=== PATIENT | female | born 1970 | race Two or more races ===

== ENCOUNTER 2025-08-16 20:49 | Inpatient (IN) | payer OTHER, MEDICAID ==
[~2025-08-16] VITALS: Ht 170.2 cm; Wt 95.5 kg
[2025-08-16 20:55] VITALS: PULSE 106; RESP 18; O2SAT 98
[2025-08-16] MEDS ORDERED: ACETAMINOPHEN 325 MG TAB PO ONE (21:15)
--- NOTE | 2025-08-16 21:17 | ED.PDOC ---
SOB-HPI HPI Comments 54-year-old was brought in by ambulance to the ER with a chief complaint of shortness of breath for the past 5 hours, along with chills. Patient reports that she felt short of breath while she was doing laundry, reports chills but denies fever. Also reports pressure-type sensation on her chest, nonradiating, denies palpitations. Denies any sick contacts or traveling. Patient underwent hemodialysis on Saturday. Per EMS, patient was 88% on room air, blood pressure was 180 systolic, and she required oxygen supplementation. Patient denies any cough or phlegm. On arrival to the ER, temperature was 102, patient is tachycardic, normotensive, 96 on room air. She has been compliant to Eliquis for the past 3 months. Past medical history: type 2 diabetic on insulin, ESRD on hemodialysis with [facility] Saturday//Saturday, history of PE 1 year on Eliquis-likely provoked after surgery, hypertension Home medications: nifedipine, metoprolol, Eliquis, insulin Patient seen and examined. No pedal edema or crackles heard. Chest X-ray no acute pathology. Chief Complaint: Shortness of Breath Time Seen by MD: 21:01 Reviewed notes: Nurses Notes Information Source: Patient Mode of Arrival: EMS Constitutional: reports: chills EENTM: denies: blurred vision, double vision, ear bleeding, ear discharge, ear drainage, ear pain, ear ringing, eye pain, eye redness, hearing loss, mouth pain, mouth swelling, nasal discharge, nose bleeding, nose congestion, nose pain, photophobia, tearing, throat pain, throat swelling, voice changes, others Respiratory: reports: cough, SOB at rest, SOB with excertion Cardiovascular: reports: chest pain Gastrointestinal: denies: abdomen distended, abdominal pain, blood streaked bowels, constipated, diarrhea, dysphagia, difficulty swallowing, hematemesis, melena, nausea, poor appetite, poor fluid intake, rectal bleeding, rectal pain, vomiting, others Genitourinary: denies: abnormal vagina bleeding, burning, dyspareunia, dysuria, flank pain, frequency, hematuria, incontinence, pain, , vagina discharge, urgency, others Neurological: denies: dizziness, fainting, headache, left sided numbness, left sided weakness, numbness, paresthesia, pre-existing deficit, right sided numbness, right sided weakness, seizure, speech problems, tingling, tremors, weakness, others Musculoskeletal: reports: others (Lower extremity pain) Integumetry: denies: bruises, change in color, change in hair/nails, dryness, laceration, lesions, lumps, rash, wounds, others Allergic/Immunocompromised: denies: Difficulty Healing, Frequent Infections, Hives, Itching, others Hematologic/Lymphatic: denies: anemia, blood clots, easy bleeding, easy bruising, swollen glands, others Endocrine: denies: excessive hunger, excessive sweating, excessive thirst, excessive urination, flushing, intolerance to cold, intolerance to heat, unexplained weight gain, unexplained weight loss, others Psychiatric: denies: anxiety, bipolar disorder, depression, hopeless, panic disorder, schizophrenia, sleepless, suicidal, others Physical Exam General Appearance: Mild Distress HEENT: Other (Dry mucous membrane) Neck: NOT DONE Respiratory: Decreased Breath Sounds, No Accessory Muscle Use Cardiovascular: No Edema, No Murmur, Tachycardia Breast Exam: Deferred Gastrointestinal: Non Tender, Normal Bowel Sounds Genitalia: Deferred Pelvic: Deferred Rectal: Deferred Extremities: Calf tenderness Neurologic: NOT DONE Cerebellar Function: NOT DONE Reflexes: NOT DONE Skin: Dry Lymphatic: NOT DONE EKG EKG : Comments Nonspecific T-wave inversions Otherwise sinus tachycardia Prior Q-waves age indeterminate Was a procedure done? Was a procedure done?: No Differential Dx Differential Diagnosis: CHF, Pneumonia X-Ray, Labs, Meds, VS Vital Signs Date Time Temp Pulse Resp B/P (MAP) Pulse Ox O2 Delivery O2 Flow Rate FiO2 08/17/25 01:00 99.4 78 14 101/57 (72) 98 99.4 08/17/25 00:28 82 08/17/25 00:00 81 08/16/25 23:01 99.6 98 18 144/62 (89) 98 99.6 08/16/25 21:50 102.3 08/16/25 21:32 18 98 Nasal Cannula* 2 28 08/16/25 21:32 98 Nasal Cannula* 2 28 08/16/25 21:24 101 08/16/25 20:58 96 Nasal Cannula* 2 28 08/16/25 20:56 102.9 109 18 189/81 96 102.9 08/16/25 20:55 102.3 106 18 139/61 (87) 98 102.3 08/16/25 20:55 106 18 98 Nasal Cannula* 2 28 Lab Test 08/17/25 00:58 08/16/25 23:18 08/16/25 22:28 08/16/25 22:06 Range/Units Reticulocyte Count (auto) 1.04 0.5-1.5 % Haptoglobin Pending Prothrombin Time 11.4 9.3-11.8 sec Prothrombin Time INR 1.08 0.9-1.15 Activated Partial Thromboplast Time 31.2 24.5-34.5 SEC Hemoglobin A1c 9.3 H <5.7 % A1C Phosphorus Level Pending Magnesium Level Pending Troponin I High Sensitivity 665 *H 344 *H 131 *H </=34 ng/L Triglycerides Level Pending Cholesterol Level Pending LDL Cholesterol Pending HDL Cholesterol Pending Vitamin B12 Level Pending Vitamin D 25-Hydroxy 15.0 L 30.0-100 ng/mL Thyroid Stimulating Hormone (TSH) 1.40 0.55-4.78 uIU/mL Lactic Acid Level 1.7 0.4-2.0 mmol/L White Blood Count 22.6 H 4.4-10.8 10^3/uL Red Blood Count 2.37 L 4.0-5.20 10^6/uL Hemoglobin 6.8 *L 12.2-16.2 g/dL Hematocrit 20.8 L 36.0-46.0 % Mean Corpuscular Volume 87.8 80.0-100.0 fL Mean Corpuscular Hemoglobin 28.6 28.0-32.0 pg Mean Corpuscular Hemoglobin Concent 32.6 32.0-36.0 g/dL Red Cell Distribution Width 18.0 H 11.8-14.3 % Platelet Count 344 140-450 10^3/uL Mean Platelet Volume 8.7 6.9-10.8 fL Neutrophils (%) (Auto) 83.0 H 37.0-80.0 % Lymphocytes (%) (Auto) 8.0 L 10.0-50.0 % Monocytes (%) (Auto) 7.6 0.0-12.0 % Eosinophils (%) (Auto) 0.8 0.0-7.0 % Basophils (%) (Auto) 0.6 0.0-2.0 % Neutrophils # (Auto) 18.7 H 1.6-8.6 10 ^3/uL Lymphocytes # (Auto) 1.8 0.4-5.4 10 ^3/uL Monocytes # (Auto) 1.7 H 0-1.3 10 ^3/uL Eosinophils # (Auto) 0.2 0-0.8 10 ^3/uL Basophils # (Auto) 0.1 0-0.2 10 ^3/uL Nucleated Red Blood Cells 0.0 % Sodium Level 138 136-145 mmol/L Potassium Level 3.1 L 3.5-5.1 mmol/L Chloride Level 97 L 98-107 mmol/L Carbon Dioxide Level 25 20-31 mmol/L Anion Gap 16 H 5-15 Blood Urea Nitrogen 64 H 9-23 mg/dL Creatinine 5.28 H 0.550-1.02 mg/dL Glomerular Filtration Rate Calc 9 >90 mL/min BUN/Creatinine Ratio 12.1 10.0-20.0 Serum Glucose 212 H 74-106 mg/dL Calcium Level 9.1 8.7-10.4 mg/dL Iron Level 25 L 50-170 ug/dL Total Iron Binding Capacity 236 L 250-425 ug/dL Percent Iron Saturation 10.6 L 15-50 % Ferritin 611.0 H 10-291 ng/mL Total Bilirubin 0.2 0.2-1.0 mg/dL Aspartate Amino Transferase (AST) 17 13-40 U/L Alanine Aminotransferase (ALT) 13 7-40 U/L Alkaline Phosphatase 141 H 46-116 U/L Lactate Dehydrogenase 243 120-246 U/L B-Type Natriuretic Peptide 217.82 0-100 pg/mL Total Protein 8.3 H 5.7-8.2 g/dL Albumin 4.2 3.2-4.8 g/dL Test 08/16/25 22:00 Range/Units Influenza Type A Antigen Positive Negative Influenza Type B Antigen Positive Negative SARS-CoV-2 Antigen (Rapid) Negative NEGATIVE Current Medications Medications (Trade) Dose Ordered Sig/Julio C Route Start Time Stop Time Status Last Admin Levalbuterol HCl (Xopenex Medneb) 0.625 mg Q6HR NEB 08/16/25 21:15 08/17/25 01:46 Acetaminophen (Tylenol Tablet Or Capsule) 1,000 mg ONCE ONCE PO 08/16/25 21:30 08/16/25 21:31 DC 08/16/25 21:50 Ceftriaxone Sodium 50 ml @ 100 mls/hr ONCE ONCE IV 08/16/25 22:00 08/16/25 22:29 DC 08/16/25 22:28 Azithromycin 250 ml @ 125 mls/hr ONCE ONCE IV 08/16/25 22:00 08/16/25 23:59 DC 08/16/25 22:00 Potassium Chloride 100 ml @ 50 mls/hr ONCE ONCE IV 08/16/25 23:30 08/17/25 01:29 DC 08/17/25 01:12 Oseltamivir Phosphate (Tamiflu 30MG Capsule) 30 mg ONCE ONCE PO 08/16/25 23:30 08/16/25 23:31 DC 08/17/25 01:12 Pantoprazole Sodium (Protonix) 40 mg ONCE ONCE IV 08/17/25 00:45 08/17/25 00:46 DC 08/17/25 01:12 X-Ray, Labs, Meds, VS Comment Lower extremity Doppler No right or left femoropopliteal venous thrombosis. Images Reviewed?: Images reviewed and evaluated by me Time of 1ST Reevaluation: 00:00 Reevaluation 1ST: Improved Patient Education/Counseling: Diagnosis, Treatment Family Education/Counseling: No Family Present SEPSIS Sepsis Screen Date sepsis recognized/suspect: Aug 16, 2025 Time Sepsis recognized/suspect: 2053 Recent Procedure: No On Antibiotic Therapy: No Respiratory Rate >20: No Heart Rate >90: Yes Temp<36 C (96.8 F) or >38.3 C: Yes SBP <90 or MAP <65 mmHG: No New Acute Mental Status Change: No Is the patient on CPAP, BIPAP,: No Physician Orders Urinalysis (08/16/25 21:12) Chest Xray 1 View (08/16/25 21:12) Test, Urine (08/16/25 21:12) Blood Culture (08/16/25 21:12) Bilat Lower Dvt (08/16/25 21:12) Mrsa Screen (08/16/25 21:12) Levalbuterol Hcl (Xopenex Medneb) (08/16/25 21:15) Electrocardigram (08/16/25 21:33) Vital Signs Date Time Temp Pulse Resp B/P (MAP) Pulse Ox O2 Delivery O2 Flow Rate FiO2 08/17/25 01:00 99.4 78 14 101/57 (72) 98 99.4 08/17/25 00:28 82 08/17/25 00:00 81 08/16/25 23:01 99.6 98 18 144/62 (89) 98 99.6 08/16/25 21:50 102.3 08/16/25 21:32 18 98 Nasal Cannula* 2 28 08/16/25 21:32 98 Nasal Cannula* 2 28 08/16/25 21:24 101 08/16/25 20:58 96 Nasal Cannula* 2 28 08/16/25 20:56 102.9 109 18 189/81 96 102.9 08/16/25 20:55 102.3 106 18 139/61 (87) 98 102.3 08/16/25 20:55 106 18 98 Nasal Cannula* 2 28 Laboratory Tests Test 08/16/25 22:06 08/16/25 22:28 White Blood Count 22.6 10^3/uL (4.4-10.8) H Lactic Acid Level 1.7 mmol/L (0.4-2.0) Medications Medications Dose Ordered Sig/Julio C Route Start Time Stop Time Status Last Admin Dose Admin Acetaminophen 1,000 mg ONCE ONCE PO 08/16/25 21:30 08/16/25 21:31 DC 08/16/25 21:50 Azithromycin 250 ml @ 125 mls/hr ONCE ONCE IV 08/16/25 22:00 08/16/25 23:59 DC 08/16/25 22:00 Ceftriaxone Sodium 50 ml @ 100 mls/hr ONCE ONCE IV 08/16/25 22:00 08/16/25 22:29 DC 08/16/25 22:28 Levalbuterol HCl 0.625 mg Q6HR NEB 08/16/25 21:15 08/17/25 01:46 Levalbuterol HCl 1.25 mg STK-MED ONCE .ROUTE 08/16/25 21:27 08/16/25 21:23 DC 08/16/25 21:31 Oseltamivir Phosphate 30 mg ONCE ONCE PO 08/16/25 23:30 08/16/25 23:31 DC 08/17/25 01:12 Pantoprazole Sodium 40 mg ONCE ONCE IV 08/17/25 00:45 08/17/25 00:46 DC 08/17/25 01:12 Potassium Chloride 100 ml @ 50 mls/hr ONCE ONCE IV 08/16/25 23:30 08/17/25 01:29 DC 08/17/25 01:12 Departure 1 Departure Time of Disposition: 00:35 Impression: Primary Impression: Acute hypoxic respiratory failure Additional Impressions: Influenza B Influenza A Acute blood loss anemia Disposition: ADMITTED INPATIENT Condition: Guarded Comments Patient will be admitted to this facility for further workup of sepsis, acute hypoxic respiratory failure, probable underlying pneumonia, acute blood loss anemia Spoke with Dr. [id number] Critical Care Note Critical Care Time?: No Stability Stability form required: No Heart Score Heart Score: Heart Score Response (Comments) Value History Moderate Suspicious 1 EKG Repolarization Disturb 1 Age 45-64 1 Risk Factors >3 or Hx ASHD 2 Troponin >3 x's Normal limit 2 Total 7 CANDACE NORWOOD RESIDENT Aug 16, 2025 21:16
[2025-08-16] MEDS: LEVALBUTEROL HCL 1.25 MG/3 ML NEB NEB SCH (21:29)
[2025-08-16] MEDS: LEVALBUTEROL HCL 1.25 MG/3 ML NEB ONE (21:31)
--- NOTE | 2025-08-16 21:42 | DVH ---
CHEST RADIOGRAPH Indication: sob Technique: Single frontal view of the chest was obtained Comparison: None FINDINGS: Lines and Tubes: None Lungs: No focal consolidation. Pleura: No effusion. No pneumothorax. Cardiomediastinal contours: Unremarkable Bones: No acute osseous abnormality. IMPRESSION: 1. No acute cardiopulmonary disease.
[2025-08-16] MEDS: ACETAMINOPHEN 500 MG TAB or CAP PO ONE (21:50)
[2025-08-16] MEDS: AZITHROMYCIN 500MG/ 250ML 250 ML IV ONE (22:00)
[2025-08-16 22:30] LABS: Nucleated Red Blood Cells % 0.0 %
[2025-08-16 22:32] LABS: Hematocrit 20.8 % (36.0-46.0); Mean Corpuscular Hemoglobin 28.6 pg (28.0-32.0); Mean Corpuscular Volume 87.8 fL (80.0-100.0)
[2025-08-16 22:45] LABS: Hemoglobin 6.8 g/dL (12.2-16.2)
--- NOTE | 2025-08-16 22:45 | DVH ---
Bilateral lower extremity venous duplex Clinical History: sob, tenderness Comparison: None Technique: Duplex Doppler evaluation of the deep venous systems of both lower extremities from the common femora l veins to the popliteal veins including color Doppler and spectral/pulsed waveform analysis was perf ormed. Findings: RIGHT SIDE: The common femoral vein demonstrates appropriate compressibility and waveform variability. There is compressibility/patency of the great saphenous vein at the proximal thigh. The femoral vein demonstrates appropriate compressibility and waveform variability. The deep femoral vein demonstrates appropriate compressibility and waveform variability. The popliteal vein demonstrates appropriate compressibility and waveform variability. There is normal compressibility at the tibioperoneal trunk. LEFT SIDE: The common femoral vein demonstrates appropriate compressibility and waveform variability. There is compressibility/patency of the great saphenous vein at the proximal thigh. The femoral vein demonstrates appropriate compressibility and waveform variability. The deep femoral vein demonstrates appropriate compressibility and waveform variability. The popliteal vein demonstrates appropriate compressibility and waveform variability. There is normal compressibility at the tibioperoneal trunk. Impression: No right or left femoropopliteal venous thrombosis.
[2025-08-16 22:48] LABS: COVID19 ANTIGEN SOFIA FIA NEGATIVE (NEGATIVE)
[2025-08-16 22:48] LABS: Alanine Aminotransferase 13 U/L (7-40); Albumin 4.2 g/dL (3.2-4.8); Anion Gap 16 (5-15); BUN/Creatinine Ratio 12.1 (10.0-20.0); Calcium 9.1 mg/dL (8.7-10.4); Carbon Dioxide 25 mmol/L (20-31); Sodium 138 mmol/L (136-145)
[2025-08-16 22:49] LABS: Alkaline Phosphatase 141 U/L (46-116); Bilirubin, Total 0.2 mg/dL (0.2-1.0); Blood Urea Nitrogen 64 mg/dL (9-23); Chloride 97 mmol/L (98-107); Glucose 212 mg/dL (74-106); Potassium 3.1 mmol/L (3.5-5.1); Total Protein 8.3 g/dL (5.7-8.2)
[2025-08-16 23:23] LABS: Iron 25.0 ug/dL (50-170)
[2025-08-16 23:24] LABS: Total Iron Binding Capacity 236.0 ug/dL (250-425)
[2025-08-17] VITALS (16 sets, daily range): BP systolic 108–167; BP diastolic 50–84; PULSE 74–106; RESP 12–19; TEMP 98.5–98.9; O2SAT 95–100
[2025-08-17] MEDS: PANTOPRAZOLE 40 MG/10 ML VIAL INJ IV ONE (01:12)
[2025-08-17] MEDS: OSELTAMIVIR 30 MG CAP PO ONE ×2 (01:12→13:37)
[2025-08-17] MEDS: POTASSIUM CHL 20MEQ/100ML 100 ML IV ONE (01:12)
[2025-08-17] MEDS ORDERED: MORPHINE SULFATE INJ 2 MG/ml SYRG IV PRN (01:15)
--- NOTE | 2025-08-17 01:15 | DVHHPRES ---
History of Present Illness Resident Creating Document: JODI EDWARDS History of Present Illness Christina Zarate is a 54-year-old female patient who presents to ED with chief complaint of fatigue, generalized weakness, dyspnea and chest pain which is described as tightness and in variable functional class, which started on 08/16/2025 at noon, with no relieving factors, no radiation. Patient has end- stage renal disease, currently completing hemodialysis sessions on Saturday//Saturdays through AV fistula which presents a blood clot is she has been on apixaban for the past three months. Denies any other associated symptoms like fever, chills, nausea, vomiting, melena, hematemesis, sick contacts and recent travel. Patient never completed colonoscopy. 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 Surgical history: Av fistula, x2 Family history: Noncontributory Social history: Lives in [place] with family (next of kin is daughter). Denies current tobacco, alcohol and other drug abuse Allergies: Vancomycin, amoxicillin, NSAIDs and lisinopril Home medication: Metoprolol, nifedipine, atorvastatin, apixaban. Patient seen and examined at bedside. Currently has no new complaints. She is somnolent. Patient admitted for further workup. Past Medical History Per HPI Past Surgical History Per HPI Family History Per HPI Past Social History Per HPI Review of Systems Review of Systems Per HPI Allergies: Coded Allergies: Lisinopril (Verified Allergy, Unknown, 08/16/25) NSAIDs (Verified Allergy, Unknown, 08/16/25) Vancomycin (Verified Allergy, Unknown, 08/16/25) Uncoded Allergies: ANOXICILLIN (Allergy, Unknown, 08/16/25) Medications Current Medications Medications Dose Ordered Sig/Julio C Route Start Time Stop Time Status Last Admin Dose Admin Levalbuterol HCl 0.625 mg Q6HR NEB 08/16/25 21:15 08/16/25 21:29 0.625 MG Exam Vital Signs Vital Signs Date Time Temp Pulse Resp B/P (MAP) Pulse Ox O2 Delivery O2 Flow Rate FiO2 08/17/25 00:28 82 08/16/25 23:01 99.6 18 144/62 (89) 98 99.6 08/16/25 21:32 Nasal Cannula* 2 28 Exam Patient lying in bed, in no acute distress General: Lucid, somnolent, febrile, mucosae are moist, pale conjunctivae Cardiovascular: Normal S1 and S2. No murmurs, gallops or rubs Respiratory: Normal ventilation mechanics. Bilateral crackles mainly on bases, rest of lung auscultation is clear. Abdomen: Soft, nontender, no organomegaly, normal bowel sounds MSK/skin: Mobilizes 4 limbs. Skin is dry and warm. AV fistula on left arm which thrills. Neurological: Oriented in 3 spheres. No motor no sensitive deficits. Pupils are isocoric and reactive Labs/Xrays Labs Test 08/17/25 00:58 08/16/25 22:28 08/16/25 22:06 08/16/25 22:00 Range/Units Lactic Acid Level 1.7 0.4-2.0 mmol/L White Blood Count 22.6 H 4.4-10.8 10^3/uL Red Blood Count 2.37 L 4.0-5.20 10^6/uL Hemoglobin 6.8 *L 12.2-16.2 g/dL Hematocrit 20.8 L 36.0-46.0 % Mean Corpuscular Volume 87.8 80.0-100.0 fL Mean Corpuscular Hemoglobin 28.6 28.0-32.0 pg Mean Corpuscular Hemoglobin Concent 32.6 32.0-36.0 g/dL Red Cell Distribution Width 18.0 H 11.8-14.3 % Platelet Count 344 140-450 10^3/uL Mean Platelet Volume 8.7 6.9-10.8 fL Neutrophils (%) (Auto) 83.0 H 37.0-80.0 % Lymphocytes (%) (Auto) 8.0 L 10.0-50.0 % Monocytes (%) (Auto) 7.6 0.0-12.0 % Eosinophils (%) (Auto) 0.8 0.0-7.0 % Basophils (%) (Auto) 0.6 0.0-2.0 % Neutrophils # (Auto) 18.7 H 1.6-8.6 10 ^3/uL Lymphocytes # (Auto) 1.8 0.4-5.4 10 ^3/uL Monocytes # (Auto) 1.7 H 0-1.3 10 ^3/uL Eosinophils # (Auto) 0.2 0-0.8 10 ^3/uL Basophils # (Auto) 0.1 0-0.2 10 ^3/uL Nucleated Red Blood Cells 0.0 % Sodium Level 138 136-145 mmol/L Potassium Level 3.1 L 3.5-5.1 mmol/L Chloride Level 97 L 98-107 mmol/L Carbon Dioxide Level 25 20-31 mmol/L Anion Gap 16 H 5-15 Blood Urea Nitrogen 64 H 9-23 mg/dL Creatinine 5.28 H 0.550-1.02 mg/dL Glomerular Filtration Rate Calc 9 >90 mL/min BUN/Creatinine Ratio 12.1 10.0-20.0 Serum Glucose 212 H 74-106 mg/dL Calcium Level 9.1 8.7-10.4 mg/dL Iron Level 25 L 50-170 ug/dL Total Iron Binding Capacity 236 L 250-425 ug/dL Percent Iron Saturation 10.6 L 15-50 % Ferritin 611.0 H 10-291 ng/mL Total Bilirubin 0.2 0.2-1.0 mg/dL Aspartate Amino Transferase (AST) 17 13-40 U/L Alanine Aminotransferase (ALT) 13 7-40 U/L Alkaline Phosphatase 141 H 46-116 U/L Lactate Dehydrogenase 243 120-246 U/L B-Type Natriuretic Peptide 217.82 0-100 pg/mL Total Protein 8.3 H 5.7-8.2 g/dL Albumin 4.2 3.2-4.8 g/dL Influenza Type A Antigen Positive Negative Influenza Type B Antigen Positive Negative SARS-CoV-2 Antigen (Rapid) Negative NEGATIVE SEPSIS Sepsis Screen Date sepsis recognized/suspect: Aug 16, 2025 Time Sepsis recognized/suspect: 2053 Recent Procedure: No On Antibiotic Therapy: No Respiratory Rate >20: No Heart Rate >90: Yes Temp<36 C (96.8 F) or >38.3 C: Yes SBP <90 or MAP <65 mmHG: No New Acute Mental Status Change: No Is the patient on CPAP, BIPAP,: No Physician Orders Urinalysis (08/16/25 21:12) Chest Xray 1 View (08/16/25 21:12) Troponin-I Hs (08/17/25 00:12) Test, Urine (08/16/25 21:12) Blood Culture (08/16/25 21:12) Bilat Lower Dvt (08/16/25 21:12) Mrsa Screen (08/16/25 21:12) Levalbuterol Hcl (Xopenex Medneb) (08/16/25 21:15) Electrocardigram (08/16/25 21:33) Type And Screen (08/16/25 22:50) Reticulocyte Count (08/16/25 22:50) Potassium Chl 20meq/100ml (08/16/25 23:30) Admit (08/17/25 01:03) Code Status (08/17/25 01:03) Acetaminophen Tablet (Tylenol Tablet) (08/17/25:15) Ondansetron Hcl (Zofran) (08/17/25 01:15) Npo (Nothing By Mouth) Diet (08/17/25 Breakfast) Echo 2d Mode Cardiac Dop (08/17/25 01:03) Morphine Sulfate Injection (08/17/25:15) Oxygen By Nasal Cannula (08/17/25 01:03) Stat Ekg For Chest Pain (08/17/25 01:03) Notify Md Of Changes From Base (08/17/25 01:03) Advanced Manager For 24 Hours (08/17/25 01:03) Emergency Dysrhythmia Protocol (08/17/25 01:03) Rhythm Strips Once Every Shift (08/17/25 01:03) Abg W/ Co-Ox (08/17/25 01:03) Vitamin D, 25-Hydroxy (08/17/25 01:03) Vitamin B12 (08/17/25 01:03) Thyroid Stimulating Hormone (08/17/25 01:03) PTPTT (08/17/25 01:03) Phosphorus (08/17/25 01:03) Magnesium (08/17/25 01:03) Lipid Panel (08/17/25 01:03) Hemoglobin A1c (08/17/25 01:03) Drug Screen (08/17/25 01:03) *Dr. Bernie Cho -[facility] (08/17/25 01:03) Ipratropium Medneb (Atrovent Medneb) (08/17/25 06:00) Ceftriaxone 1gm/50ml (Rocephin) (08/17/25 01:15) Azithromycin 500mg/ 250ml (Zithromax 50 (08/17/25 10:00) Stool Occult Blood (08/17/25 01:13) Haptoglobin (08/17/25 01:13) Vital Signs Date Time Temp Pulse Resp B/P (MAP) Pulse Ox O2 Delivery O2 Flow Rate FiO2 08/17/25 00:28 82 08/17/25 00:00 81 08/16/25 23:01 99.6 98 18 144/62 (89) 98 99.6 08/16/25 21:50 102.3 08/16/25 21:32 18 98 Nasal Cannula* 2 28 08/16/25 21:32 98 Nasal Cannula* 2 28 08/16/25 21:24 101 08/16/25 20:58 96 Nasal Cannula* 2 28 08/16/25 20:56 102.9 109 18 189/81 96 102.9 08/16/25 20:55 102.3 106 18 139/61 (87) 98 102.3 08/16/25 20:55 106 18 98 Nasal Cannula* 2 28 Laboratory Tests Test 08/16/25 22:06 08/16/25 22:28 White Blood Count 22.6 10^3/uL (4.4-10.8) H Lactic Acid Level 1.7 mmol/L (0.4-2.0) Medications Medications Dose Ordered Sig/Julio C Route Start Time Stop Time Status Last Admin Dose Admin Acetaminophen 1,000 mg ONCE ONCE PO 08/16/25 21:30 08/16/25 21:31 DC 08/16/25 21:50 1,000 MG Azithromycin 250 ml @ 125 mls/hr ONCE ONCE IV 08/16/25 22:00 08/16/25 23:59 DC 08/16/25 22:00 125 MLS/HR Ceftriaxone Sodium 50 ml @ 100 mls/hr ONCE ONCE IV 08/16/25 22:00 08/16/25 22:29 DC 08/16/25 22:28 100 MLS/HR Levalbuterol HCl 0.625 mg Q6HR NEB 08/16/25 21:15 08/16/25 21:29 0.625 MG Levalbuterol HCl 1.25 mg STK-MED ONCE .ROUTE 08/16/25 21:27 08/16/25 21:23 DC 08/16/25 21:31 1.25 MG Assessment/Plan Assessment/Plan Acute respiratory failure Sepsis probably secondary to pneumonia Influenza pneumonia Currently on oxygen therapy with nasal cannula at 2 L Ordered ABG Ordered deluca cultures (blood, sputum, urine). COVID swab negative, influenza a and B positive. Currently under empiric IV antibiotic (azithromycin and ceftriaxone) and on oseltamivir. Currently hold IV fluids since patient has end-stage renal disease. Indicated PRBCs. End-stage renal disease on hemodialysis session (Saturday//Saturday) Arterial venous fistula thrombosis Metabolic acidosis probably secondary to uremia Patient has been on apixaban for the past three months Discontinued blood thinners due to severe anemia. Consulted nephrology ([facility]) Severe normocytic anemia Rule out GI bleed Ordered anemia workup. Stool occult blood Currently on IV pantoprazole b.i.d. Discontinued anticoagulation (patient was on apixaban) Patient may benefit from erythropoietin. Ferritin levels are increased, iron decreased NSTEMI probable type 2 Probably secondary to active bleeding Ordered echocardiogram Hypertension Dyslipidemia Diabetes insulin requiring - Uncontrolled (hemoglobin A1c 9.2%) Patient currently on insulin sliding scale Hold anti-hypertensive medication due to probable active bleeding. Goals of care discussed with patient for over 18 minutes: Full code status Discussed plan with Dr. Johnson, patient and nurses: Patient will be admitted to telemetry, indicated PRBCs, on empiric IV antibiotic and adjusted antiviral medication. Hold IV fluids due to end-stage renal disease, ordered complementary workup for anemia and NSTEMI. Patient has poor prognosis Patient is unstable to be transferred to [place] Plan discussed with: Patient, Other (Nurses) My Orders Orders - JODI EDWARDS RESIDENT Procedure Category Date Status Time Admit ADMIT 08/17/25 Transmitted 01:03 Code Status CODE 08/17/25 Transmitted 01:03 Acetaminophen Tablet PHA 08/17/25 Logged (Tylenol Tablet) 01:15 Ondansetron Hcl PHA 08/17/25 Logged (Zofran) 01:15 Npo (Nothing By DIET 08/17/25 Transmitted Mouth) Diet Breakfast Echo 2d Mode Cardiac US 08/17/25 Logged DOP 01:03 Morphine Sulfate PHA 08/17/25 Logged Injection 01:15 Oxygen By Nasal RT 08/17/25 Transmitted Cannula 01:03 Stat Ekg For Chest DEBBIE 08/17/25 In Process Pain 01:03 Notify Of Changes DEBBIE 08/17/25 In Process From Base 01:03 Advanced Manager For [facility] 08/17/25 In Process 24 Hours 01:03 Emergency Dysrhythmia DEBBIE 08/17/25 In Process Protocol 01:03 Rhythm Strips Once DEBBIE 08/17/25 In Process Every Shift 01:03 Abg W/ Co-Ox RT 08/17/25 Logged 01:03 Vitamin D, 25-Hydroxy LAB 08/17/25 Logged 01:03 Vitamin B12 LAB 08/17/25 Logged 01:03 Thyroid Stimulating LAB 08/17/25 Logged Hormone 01:03 PTPTT LAB 08/17/25 Logged 01:03 Phosphorus LAB 08/17/25 Logged 01:03 Magnesium LAB 08/17/25 Logged 01:03 Lipid Panel LAB 08/17/25 Logged 01:03 Hemoglobin A1c LAB 08/17/25 Logged 01:03 Drug Screen LAB 08/17/25 Logged 01:03 *[facility] -[facility] CONS 08/17/25 Transmitted Inez 01:03 Ipratropium Medneb PHA 08/17/25 Logged (Atrovent Medneb) 06:00 Ceftriaxone 1gm/50ml PHA 08/17/25 Logged (Rocephin) 01:15 Azithromycin 500mg/ PHA 08/17/25 Logged 250ml (Zithromax 50 10:00 Stool Occult Blood LAB 08/17/25 Verified 01:13 Haptoglobin LAB 08/17/25 Verified 01:13 Date of Service: Aug 17, 2025 Billing Provider: VY ALVAREZ MD Common Visit Codes: [id number] INP/OBS CARE (HIGH) Secondary Visit Codes: [id number] CARE PLAN 30 MINUTES JODI EDWARDS Aug 17, 2025 01:15
[2025-08-17] MEDS: IPRATROPIUM BROM 0.5 MG/2.5ML INH SOL NEB SCH (01:46)
[2025-08-17 01:56] LABS: INR 1.08 (0.9-1.15); Partial Thromboplastin Time 31.2 SEC (24.5-34.5); Prothrombin Time 11.4 sec (9.3-11.8)
[2025-08-17 02:12] LABS: Base Excess -4.2 mmol/L (-2.0-3.0)
[2025-08-17] MEDS ORDERED: DEXTROSE (50%) 50ML SYRG IV PRN (02:15)
[2025-08-17 02:18] LABS: Magnesium 2.4 mg/dL (1.6-2.6); Triglycerides 179.0 mg/dL (< 150)
[2025-08-17 02:20] LABS: Cholesterol 176.0 mg/dL (< 200); HDL Cholesterol 49.0 mg/dL (40-59)
--- NOTE | 2025-08-17 05:37 | ECG ---
[facility] Test Date: 2025-08-16 Test Time: 21:24:56 Pat Name: NELIA MANCIA Department: [facility] ED Patient ID: [id number] Room: [address] [place] [address] Gender: F [employer]ement T[employer]: ED : 1970 Requested By: CANDACE NORWOOD Order Number: [id number] Reading MD: Florentin Moran Measurements Intervals [place] Rate: 101 P: 148 ID: [id number] QRS: -13 QRSD: 96 T: 121 QT: 358 QTc: 465 Interpretive Statements Sinus or ectopic atrial tachycardia Left atrial enlargement LVH with secondary repolarization abnormality Inferior infarct, old Anterior Q waves, possibly due to LVH Electronically Signed On 08-17-2025 15:24:58 PDT by Florentin Moran Please click the below link to view image of tracing.
[2025-08-17] MEDS: ACCU-CHEK COMFORT CURVE STRIP VI SCH (06:00)
[2025-08-17] MEDS: InsuLIN REG 1unit/0.01ml Soln (100units/ml) SC SCH (06:38)
[2025-08-17 08:07] LABS: Alanine Aminotransferase 12 U/L (7-40); Anion Gap 17 (5-15); Carbon Dioxide 21 mmol/L (20-31); Chloride 100 mmol/L (98-107); Sodium 138 mmol/L (136-145); Total Protein 8.1 g/dL (5.7-8.2)
[2025-08-17 08:08] LABS: Albumin 4.1 g/dL (3.2-4.8); Alkaline Phosphatase 122 U/L (46-116); BUN/Creatinine Ratio 11.4 (10.0-20.0); Bilirubin, Total 0.2 mg/dL (0.2-1.0); Blood Urea Nitrogen 66 mg/dL (9-23); Calcium 8.7 mg/dL (8.7-10.4); Glucose 173 mg/dL (74-106); Hematocrit 37.9 % (36.0-46.0); Hemoglobin 12.3 g/dL (12.2-16.2); Mean Corpuscular Hemoglobin 28.7 pg (28.0-32.0); Mean Corpuscular Volume 88.1 fL (80.0-100.0); Nucleated Red Blood Cells % 0.1 %; Potassium 3.1 mmol/L (3.5-5.1)
[2025-08-17 09:55] LABS: Urine Protein, UAD 2+ (Negative)
[2025-08-17] MEDS: AZITHROMYCIN 500MG/ 250ML 250 ML IV SCH (09:55)
[2025-08-17] MEDS: PANTOPRAZOLE 40 MG/10 ML VIAL INJ IV SCH (09:56)
[2025-08-17 09:57] LABS: Benzodiazephine Screen, Urine Neg (NEGATIVE)
[2025-08-17 10:03] LABS: Amphetamine Screen, Urine Neg (NEGATIVE); Barbiturate Scree,Urine Neg (NEGATIVE); Cannabinoid Screen, Urine Neg (NEGATIVE); Cocaine Screen, Urine Neg (NEGATIVE); Opiate Scree,Urine Neg (NEGATIVE); Phencyclidine Screen, Urine Neg (NEGATIVE)
--- NOTE | 2025-08-17 12:08 | DVHPN2 ---
Progress Note Date Seen: Aug 17, 2025 Medical Necessity Reason Pt with a Central, PICC or Fol: No Subjective Patient reports: No new complaints Review of Systems: HEENT:Normal, CVS:Normal, RESPIRATORY:Normal, GI:Normal, :Normal, MSK:Normal, NEURO:Normal Objective vital signs Vital Sign Date Time Temp Pulse Resp B/P (MAP) Pulse Ox O2 Delivery O2 Flow Rate FiO2 08/17/25 11:55 100 Nasal Cannula 2.0 08/17/25 11:55 79 18 08/17/25 11:55 28 08/17/25 10:00 134/72 (92) 08/17/25 05:28 98.5 98.5 Total Intake and Output 08/16/25 08/16/25 08/17/25 15:00 23:00 07:00 Intake Total 600 ml Balance 600 ml medications Current Medications Medications Dose Ordered Sig/Julio C Route Start Time Stop Time Status Last Admin Dose Admin Levalbuterol HCl 0.625 mg Q6HR NEB 08/16/25 21:15 08/17/25 11:53 0.625 MG Acetaminophen 325 mg Q4HP PRN PO 08/17/25 01:15 Ondansetron HCl 4 mg Q4HP PRN IV 08/17/25 01:15 Morphine Sulfate 2 mg Q4HPRN PRN IV 08/17/25 01:15 Ipratropium [place] 0.5 mg Q6HWA NEB 08/17/25 06:00 08/17/25 11:53 0.5 MG Azithromycin 250 ml @ 125 mls/hr DAILY IV 08/17/25 10:00 08/17/25 09:55 125 MLS/HR Pantoprazole Sodium 40 mg BID IV 08/17/25 10:00 08/17/25 09:56 40 MG Diagnostic Test (Pha) 1 strip Q6HR 08/17/25 06:00 08/17/25 06:00 1 STRIP Insulin Human Regular Q6HR SC 08/17/25 06:00 08/17/25 06:38 3 UNITS Dextrose 50 ml UD PRN IV 08/17/25 02:15 Oseltamivir Phosphate 30 mg DAILY PO 08/18/25 10:00 08/23/25 09:59 Examination: GENERAL:Normal, HEENT:Normal, NECK:Normal, LUNGS:Normal, CVS:Normal, ABDOMEN:Normal, MSK:Normal, SKIN:Normal, NEURO:Normal, :Normal laboratory and microbiology Laboratory Tests 08/17/25 07:42 Test 08/17/25 07:42 Range/Units Serum Glucose 173 H 74-106 mg/dL Problem List/Assessment/Plan Problem List/Assessment/Plan #1 sepsis likely due to influenza: tamiflu, cultures #2 esrd: on dialysis #3 severe anemia: recheck hemoglobin #4 obesity #5 dm: ssi #6 htn #8 h/o dvt: on eliquis #9 chronic systolic/diastolic heart failure #10 nstemi: cardio eval Plan discussed with: Patient My Orders My Orders Orders - BETSY MCPHERSON MD Procedure Category Date Status Time * Cardiology Consult CONS 08/17/25 Transmitted 10:49 Oseltamivir 30mg PHA 08/18/25 In Process Capsule (Tamiflu 30mg 10:00 Hemoglobin & LAB 08/17/25 Logged Hematocrit 11:32 Renal DIET 08/17/25 Transmitted Standard(2gna,3gk,Lopho) Lunch Basic Metabolic Panel LAB 08/18/25 Verified 06:00 Complete Blood Count LAB 08/18/25 Verified 06:00 Critical Care Time (mins): 41 (critical care time excluding procedures is 41 mins) Date of Service: Aug 17, 2025 Billing Provider: BETSY MCPHERSON MD Common Visit Codes: [id number] CARE 30-74 MIN CC Plasma Assessment Blood Product Administration S: [id number] BETSY MCPHERSON MD Aug 17, 2025 12:08
[2025-08-17 12:30] LABS: Hematocrit 37.0 % (36.0-46.0); Hemoglobin 12.0 g/dL (12.2-16.2)
[2025-08-17] MEDS: POTASSIUM CHL 20 Meq TABLET PO ONE (13:37)
--- NOTE | 2025-08-17 15:19 | DVHINCON2 ---
Date of service: Aug 17, [address] Gambino Reason for Consultation End-stage renal disease management History of Present Illness 54-year-old patient with significant history of end-stage renal disease on hemodialysis TTS, hypertension, diabetes type 2 who presents to the hospital with chills, hypoxia by EMS and found to have influenza positive. Patient endorses some shortness of breath and cough with some chills but no orthopnea PND or leg swelling. 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 Past Surgical History Surgical history: Av fistula, x2 Allergies: Coded Allergies: Lisinopril (Verified Allergy, Unknown, 08/16/25) NSAIDs (Verified Allergy, Unknown, 08/16/25) Vancomycin (Verified Allergy, Unknown, 08/16/25) Uncoded Allergies: ANOXICILLIN (Allergy, Unknown, 08/16/25) Current Medications Current Medications Medications (Trade) Dose Ordered Sig/Julio C Route PRN Reason Start Time Stop Time Status Last Admin Levalbuterol HCl (Xopenex Medneb) 0.625 mg Q6HR NEB 08/16/25 21:15 08/17/25 11:53 Acetaminophen (Tylenol Tablet) 325 mg Q4HP PRN PO MILD PAIN (1-3 PAIN SCALE) 08/17/25 01:15 Ondansetron HCl (Zofran) 4 mg Q4HP PRN IV NAUSEA / VOMITING 08/17/25 01:15 Morphine Sulfate 2 mg Q4HPRN PRN IV SEVERE PAIN (7-10 PAIN SCALE) 08/17/25 01:15 Ipratropium [place] (Atrovent Medneb) 0.5 mg Q6HWA NEB 08/17/25 06:00 08/17/25 11:53 Azithromycin 250 ml @ 125 mls/hr DAILY IV 08/17/25 10:08/17/25 09:55 Pantoprazole Sodium (Protonix) 40 mg BID IV 08/17/25 10:00 08/17/25 09:56 Diagnostic Test (Pha) (Accu-Chek Comfort Curve T) 1 strip Q6HR 08/17/25 06:00 08/17/25 12:00 Insulin Human Regular (InsuLIN R) Q6HR SC 08/17/25 06:00 08/17/25 13:33 Dextrose 50 ml UD PRN IV Blood Sugar LESS THAN 60 08/17/25 02:15 Oseltamivir Phosphate (Tamiflu 30MG Capsule) 30 mg BID PO 08/17/25 22:00 08/17/25 11:18 DC Oseltamivir Phosphate (Tamiflu 30MG Capsule) 30 mg DAILY PO 08/18/25 10:00 08/23/25 09:59 Social History Denies smoking alcohol or drug abuse Review of Systems HEENT: No evidence of JVD, no oral ulcers. Pulmonary: Diminished on auscultation bilaterally Cardiovascular S1-S2, no S3 or S4 Abdomen: Bowel sounds positive, soft no rebound tenderness Skin: No rash Neurological: Alert, oriented, no focal weakness H&P Exam Vital Signs/I&O Vital Sign Date Time Temp Pulse Resp B/P (MAP) Pulse Ox O2 Delivery O2 Flow Rate FiO2 08/17/25 12:06 96 18 99 08/17/25 12:00 97.7 148/69 (95) 97.7 08/17/25 12:00 Nasal Cannula* 2 28 Intake and Output 08/16/25 08/17/25 19:00 07:00 Intake Total 600 ml Balance 600 ml Blood Product 600 ml Physical Exam HEENT: No evidence of JVD, no oral ulcers. Pulmonary: Lungs are clear on auscultation bilaterally Cardiovascular S1-S2, no S3 or S4 Abdomen: Bowel sounds positive, soft no rebound tenderness Skin: No rash Neurological: Alert, oriented, no focal weakness Labs/Diagnostic Data Labs/Diagnostic Data Laboratory Tests Test 08/17/25 13:12 08/17/25 12:08 08/17/25 09:10 08/17/25 07:42 Range/Units POC Glucose 186 H 70-106 mg/dl Hemoglobin 12.0 L 12.3 # 12.2-16.2 g/dL Hematocrit 37.0 37.9 # 36.0-46.0 % Urine Color Light-yellow Yellow Urine Clarity Turbid H Clear Urine pH 6.0 5.0-9.0 Urine Specific [place] 1.014 1.001-1.035 Urine Protein 2+ H Negative Urine Ketones Negative Negative Urine Blood 1+ H Negative /uL Urine Nitrite Negative Negative Urine Bilirubin Negative Negative Urine Urobilinogen Normal Negative mg/dL Urine Leukocyte Esterase Negative Negative /uL Urine RBC 6 0 - 4 /hpf Urine Microscopic WBC 5 0-5 /HPF Urine Squamous Epithelial Cells Few <5 /hpf Urine Bacteria Few H None Seen /hpf Urine Glucose 4+ H Normal mg/dL Urine Test Negative Negative Urine Opiates Screen Neg NEGATIVE Urine Fentanyl Screen Neg NEGATIVE Urine Barbiturates Screen Neg NEGATIVE Urine Phencyclidine Screen Neg NEGATIVE Urine Amphetamines Screen Neg NEGATIVE Urine Benzodiazepines Screen Neg NEGATIVE Urine Cocaine Screen Neg NEGATIVE Urine Cannabinoids Screen Neg NEGATIVE White Blood Count 15.1 #H 4.4-10.8 10^3/uL Red Blood Count 4.30 4.0-5.20 10^6/uL Mean Corpuscular Volume 88.1 80.0-100.0 fL Mean Corpuscular Hemoglobin 28.7 28.0-32.0 pg Mean Corpuscular Hemoglobin Concent 32.6 32.0-36.0 g/dL Red Cell Distribution Width 17.7 H 11.8-14.3 % Platelet Count 214 140-450 10^3/uL Mean Platelet Volume 8.4 6.9-10.8 fL Neutrophils (%) (Auto) 69.4 37.0-80.0 % Lymphocytes (%) (Auto) 19.4 10.0-50.0 % Monocytes (%) (Auto) 10.0 0.0-12.0 % Eosinophils (%) (Auto) 0.7 0.0-7.0 % Basophils (%) (Auto) 0.5 0.0-2.0 % Neutrophils # (Auto) 10.5 H 1.6-8.6 10 ^3/uL Lymphocytes # (Auto) 2.9 0.4-5.4 10 ^3/uL Monocytes # (Auto) 1.5 H 0-1.3 10 ^3/uL Eosinophils # (Auto) 0.1 0-0.8 10 ^3/uL Basophils # (Auto) 0.1 0-0.2 10 ^3/uL Nucleated Red Blood Cells 0.1 % Sodium Level 138 136-145 mmol/L Potassium Level 3.1 L 3.5-5.1 mmol/L Chloride Level 100 98-107 mmol/L Carbon Dioxide Level 21 20-31 mmol/L Anion Gap 17 H 5-15 Blood Urea Nitrogen 66 H 9-23 mg/dL Creatinine 5.77 H 0.550-1.02 mg/dL Glomerular Filtration Rate Calc 8 >90 mL/min BUN/Creatinine Ratio 11.4 10.0-20.0 Serum Glucose 173 H 74-106 mg/dL Calcium Level 8.7 8.7-10.4 mg/dL Total Bilirubin 0.2 0.2-1.0 mg/dL Aspartate Amino Transferase (AST) 25 13-40 U/L Alanine Aminotransferase (ALT) 12 7-40 U/L Alkaline Phosphatase 122 H 46-116 U/L Troponin I High Sensitivity 1764 *H </=34 ng/L Total Protein 8.1 5.7-8.2 g/dL Albumin 4.1 3.2-4.8 g/dL Test 08/17/25 01:50 08/17/25 00:58 08/16/25 23:18 08/16/25 22:28 Range/Units Blood Gas Specimen Type Arterial Blood Gas Sample Site Left radial Blood Gas Patient Temperature 37.0 Arterial Blood Date Drawn [id number] Arterial Blood pH 7.366 7.350-7.450 Arterial Blood Partial Pressure CO2 36.9 32.0-45.0 mmHg Arterial Blood Partial Pressure O2 102.2 83.0-108.0 mmHg Arterial Blood HCO3 20.7 L 21.0-28.0 mmol/L Arterial Blood Oxygen Saturation 97.1 94.0-98.0 % Arterial Blood Base Excess -4.2 L -2.0-3.0 mmol/L Arterial Blood Oxyhemoglobin 95.9 94.0-98.0 % Arterial Blood Carboxyhemoglobin 0.7 0.5-1.5 % Arterial Blood Methemoglobin 0.5 0.0-1.5 % Rock Test Yes Blood Gas Total Hemoglobin 11.20 L 12.0-16.0 g/dL Blood Gas Liter Flow 2.00 Blood Gas Modality Nasal cannula FiO2 % 28.0 Reticulocyte Count (auto) 1.04 0.5-1.5 % Prothrombin Time 11.4 9.3-11.8 sec Prothrombin Time INR 1.08 0.9-1.15 Activated Partial Thromboplast Time 31.2 24.5-34.5 SEC Hemoglobin A1c 9.3 H <5.7 % A1C Phosphorus Level 5.1 2.4-5.1 mg/dL Magnesium Level 2.4 1.6-2.6 mg/dL Troponin I High Sensitivity 665 *H 344 *H </=34 ng/L Triglycerides Level 179 H < 150 mg/dL Cholesterol Level 176 < 200 mg/dL LDL Cholesterol 99 < 100 mg/dL HDL Cholesterol 49 40-59 mg/dL Vitamin B12 Level 383 211-911 pg/mL Vitamin D 25-Hydroxy 15.0 L 30.0-100 ng/mL Thyroid Stimulating Hormone (TSH) 1.40 0.55-4.78 uIU/mL Lactic Acid Level 1.7 0.4-2.0 mmol/L Test 08/16/25 22:06 08/16/25 22:00 Range/Units White Blood Count 22.6 H 4.4-10.8 10^3/uL Red Blood Count 2.37 L 4.0-5.20 10^6/uL Hemoglobin 6.8 *L 12.2-16.2 g/dL Hematocrit 20.8 L 36.0-46.0 % Mean Corpuscular Volume 87.8 80.0-100.0 fL Mean Corpuscular Hemoglobin 28.6 28.0-32.0 pg Mean Corpuscular Hemoglobin Concent 32.6 32.0-36.0 g/dL Red Cell Distribution Width 18.0 H 11.8-14.3 % Platelet Count 344 140-450 10^3/uL Mean Platelet Volume 8.7 6.9-10.8 fL Neutrophils (%) (Auto) 83.0 H 37.0-80.0 % Lymphocytes (%) (Auto) 8.0 L 10.0-50.0 % Monocytes (%) (Auto) 7.6 0.0-12.0 % Eosinophils (%) (Auto) 0.8 0.0-7.0 % Basophils (%) (Auto) 0.6 0.0-2.0 % Neutrophils # (Auto) 18.7 H 1.6-8.6 10 ^3/uL Lymphocytes # (Auto) 1.8 0.4-5.4 10 ^3/uL Monocytes # (Auto) 1.7 H 0-1.3 10 ^3/uL Eosinophils # (Auto) 0.2 0-0.8 10 ^3/uL Basophils # (Auto) 0.1 0-0.2 10 ^3/uL Nucleated Red Blood Cells 0.0 % Sodium Level 138 136-145 mmol/L Potassium Level 3.1 L 3.5-5.1 mmol/L Chloride Level 97 L 98-107 mmol/L Carbon Dioxide Level 25 20-31 mmol/L Anion Gap 16 H 5-15 Blood Urea Nitrogen 64 H 9-23 mg/dL Creatinine 5.28 H 0.550-1.02 mg/dL Glomerular Filtration Rate Calc 9 >90 mL/min BUN/Creatinine Ratio 12.1 10.0-20.0 Serum Glucose 212 H 74-106 mg/dL Calcium Level 9.1 8.7-10.4 mg/dL Iron Level 25 L 50-170 ug/dL Total Iron Binding Capacity 236 L 250-425 ug/dL Percent Iron Saturation 10.6 L 15-50 % Ferritin 611.0 H 10-291 ng/mL Total Bilirubin 0.2 0.2-1.0 mg/dL Aspartate Amino Transferase (AST) 17 13-40 U/L Alanine Aminotransferase (ALT) 13 7-40 U/L Alkaline Phosphatase 141 H 46-116 U/L Lactate Dehydrogenase 243 120-246 U/L Troponin I High Sensitivity 131 *H </=34 ng/L B-Type Natriuretic Peptide 217.82 0-100 pg/mL Total Protein 8.3 H 5.7-8.2 g/dL Albumin 4.2 3.2-4.8 g/dL Influenza Type A Antigen Positive Negative Influenza Type B Antigen Positive Negative SARS-CoV-2 Antigen (Rapid) Negative NEGATIVE Chest x-ray reviewed clear Assessment Assessment: End-stage renal disease on hemodialysis TTS Hypertension CHF Diabetes type 2 Influenza a and positive History of thromboembolism Acute hypoxic respiratory failure Plan: Dialysis today and TTS Continue Tamiflu Continue antibiotics Oxygen supplementation to keep pulses more 90 % He said for goal hemoglobin 10-11 g per dL Continue phosphate binder Thank you very much for allowing us to participate in the care of this patient please contact if you have any questions. Plan discussed with: Patient MARYANN VELARDE MD Aug 17, 2025 15:19
[2025-08-17] MEDS: ACETAMINOPHEN 325 MG TAB PO PRN (16:22)
[2025-08-17] MEDS: CALCIUM ACETATE 667 MG CAP PO SCH (18:15)
[2025-08-17] MEDS ORDERED: OSELTAMIVIR 30 MG CAP PO SCH (22:00)
--- NOTE | 2025-08-17 23:03 | DVHINCON2 ---
Date of service: Aug 17, 2025 Referring Physician Edward Reason for Consultation Elevated troponin History of Present Illness This is a 54-year-old female with a PMH of type 2 diabetic on insulin, ESRD on hemodialysis with [facility] Saturday//Saturday, history of PE 1 year on Eliquis-likely provoked after surgery, hypertension was brought in by ambulance to the ED with a complaint of shortness of breath for the past 5 hours, along with chills. Patient reports that she felt short of breath while she was doing laundry, reports chills but denies fever. Also reports pressure-type sensation on her chest, nonradiating, denies palpitations. Patient last underwent hemodialysis on Saturday. Per EMS, patient was 88% on room air, blood pressure was 180 systolic, and she required oxygen supplementation. On arrival to the ED, temperature was 102, patient is tachycardic, normotensive, 96 on room air. She has been compliant to Eliquis for the past 3 months. WBC 15.1, K 3.1, BUN 66, SECURITY INCIDENT HANDLER 5.77, GLUC 208,TROP 1764. Chest x-ray showed NAD. Patient was admitted to the hospital. I am asked to consult on this patient. Allergies: Coded Allergies: Lisinopril (Verified Allergy, Unknown, 08/16/25) NSAIDs (Verified Allergy, Unknown, 08/16/25) Vancomycin (Verified Allergy, Unknown, 08/16/25) Uncoded Allergies: ANOXICILLIN (Allergy, Unknown, 08/16/25) Current Medications Current Medications Medications (Trade) Dose Ordered Sig/Julio C Route PRN Reason Start Time Stop Time Status Last Admin Levalbuterol HCl (Xopenex Medneb) 0.[address] [facility] 08/16/25 21:15 08/17/25 18:42 Acetaminophen (Tylenol Tablet) 325 mg Q4HP PRN PO MILD PAIN (1-3 PAIN SCALE) 08/17/25 01:15 08/17/25 16:22 Ondansetron HCl (Zofran) 4 mg Q4HP PRN IV NAUSEA / VOMITING 08/17/25 01:15 Morphine Sulfate 2 mg Q4HPRN PRN IV SEVERE PAIN (7-10 PAIN SCALE) 08/17/25 01:15 Ipratropium [place] (Atrovent Medneb) 0.5 mg Q6HWA NEB 08/17/25 06:00 08/17/25 18:42 Azithromycin 250 ml @ 125 mls/hr DAILY IV 08/17/25 10:00 08/17/25 09:55 Pantoprazole Sodium (Protonix) 40 mg BID IV 08/17/25 10:00 08/17/25 09:56 Diagnostic Test (Pha) (Accu-Chek Comfort Curve T) 1 strip Q6HR 08/17/25 06:00 08/17/25 18:03 Insulin Human Regular (InsuLIN R) Q6HR SC 08/17/25 06:00 08/17/25 18:15 Dextrose 50 ml UD PRN IV Blood Sugar LESS THAN 60 08/17/25 02:15 Oseltamivir Phosphate (Tamiflu 30MG Capsule) 30 mg BID PO 08/17/25 22:00 08/17/25 11:18 DC Oseltamivir Phosphate (Tamiflu 30MG Capsule) 30 mg DAILY PO 08/18/25 10:00 08/23/25 09:59 Calcium Acetate (Phoslo Capsule) 667 mg TIDWMEALS PO 08/17/25 18:00 08/17/25 18:15 Review of Systems Constitutional: reports: chills EENTM: denies: blurred vision, double vision, ear bleeding, ear discharge, ear drainage, ear pain, ear ringing, eye pain, eye redness, hearing loss, mouth pain, mouth swelling, nasal discharge, nose bleeding, nose congestion, nose pain, photophobia, tearing, throat pain, throat swelling, voice changes, others Respiratory: reports: cough, SOB at rest, SOB with excertion Cardiovascular: reports: chest pain Gastrointestinal: denies: abdomen distended, abdominal pain, blood streaked bowels, constipated, diarrhea, dysphagia, difficulty swallowing, hematemesis, melena, nausea, poor appetite, poor fluid intake, rectal bleeding, rectal pain, vomiting, others Genitourinary: denies: abnormal vagina bleeding, burning, dyspareunia, dysuria, flank pain, frequency, hematuria, incontinence, pain, , vagina discharge, urgency, others Neurological: denies: dizziness, fainting, headache, left sided numbness, left sided weakness, numbness, paresthesia, pre-existing deficit, right sided numbness, right sided weakness, seizure, speech problems, tingling, tremors, weakness, others Musculoskeletal: reports: others (Lower extremity pain) Integumetry: denies: bruises, change in color, change in hair/nails, dryness, laceration, lesions, lumps, rash, wounds, others Allergic/Immunocompromised: denies: Difficulty Healing, Frequent Infections, Hives, Itching, others Hematologic/Lymphatic: denies: anemia, blood clots, easy bleeding, easy bruising, swollen glands, others Endocrine: denies: excessive hunger, excessive sweating, excessive thirst, excessive urination, flushing, intolerance to cold, intolerance to heat, unexplained weight gain, unexplained weight loss, others Psychiatric: denies: anxiety, bipolar disorder, depression, hopeless, panic disorder, schizophrenia, sleepless, suicidal, others Vital Signs Vital Signs Date Time Temp Pulse Resp B/P (MAP) Pulse Ox O2 Delivery O2 Flow Rate FiO2 08/17/25 18:50 106 18 100 08/17/25 18:40 Room Air* 0 21 08/17/25 18:00 154/73 (100) 08/17/25 12:00 97.7 97.7 Physical Exam GENERAL: Alert and oriented x 3. No acute distress. EYES: PERRL, EOMI. Anicteric. HENT: Dry mucous membranes. LUNGS: Clear to auscultation bilaterally. CARDIOVASCULAR: Regular rate and rhythm. ABDOMEN: Soft, nontender and nondistended. EXTREMITIES: No edema. NEUROLOGIC: No focal neurological deficits. SKIN: Warm, dry. Labs/Diagnostic Data Labs Test 08/17/25 17:55 08/17/25 12:08 08/17/25 09:10 08/17/25 07:42 Range/Units POC Glucose 208 H 70-106 mg/dl Hemoglobin 12.0 L 12.2-16.2 g/dL Hematocrit 37.0 36.0-46.0 % Urine Color Light-yellow Yellow Urine Clarity Turbid H Clear Urine pH 6.0 5.0-9.0 Urine Specific [place] 1.014 1.001-1.035 Urine Protein 2+ H Negative Urine Ketones Negative Negative Urine Blood 1+ H Negative /uL Urine Nitrite Negative Negative Urine Bilirubin Negative Negative Urine Urobilinogen Normal Negative mg/dL Urine Leukocyte Esterase Negative Negative /uL Urine RBC 6 0 - 4 /hpf Urine Microscopic WBC 5 0-5 /HPF Urine Squamous Epithelial Cells Few <5 /hpf Urine Bacteria Few H None Seen /hpf Urine Glucose 4+ H Normal mg/dL Urine Test Negative Negative Urine Opiates Screen Neg NEGATIVE Urine Fentanyl Screen Neg NEGATIVE Urine Barbiturates Screen Neg NEGATIVE Urine Phencyclidine Screen Neg NEGATIVE Urine Amphetamines Screen Neg NEGATIVE Urine Benzodiazepines Screen Neg NEGATIVE Urine Cocaine Screen Neg NEGATIVE Urine Cannabinoids Screen Neg NEGATIVE White Blood Count 15.1 #H 4.4-10.8 10^3/uL Red Blood Count 4.30 4.0-5.20 10^6/uL Mean Corpuscular Volume 88.1 80.0-100.0 fL Mean Corpuscular Hemoglobin 28.7 28.0-32.0 pg Mean Corpuscular Hemoglobin Concent 32.6 32.0-36.0 g/dL Red Cell Distribution Width 17.7 H 11.8-14.3 % Platelet Count 214 140-450 10^3/uL Mean Platelet Volume 8.4 6.9-10.8 fL Neutrophils (%) (Auto) 69.4 37.0-80.0 % Lymphocytes (%) (Auto) 19.4 10.0-50.0 % Monocytes (%) (Auto) 10.0 0.0-12.0 % Eosinophils (%) (Auto) 0.7 0.0-7.0 % Basophils (%) (Auto) 0.5 0.0-2.0 % Neutrophils # (Auto) 10.5 H 1.6-8.6 10 ^3/uL Lymphocytes # (Auto) 2.9 0.4-5.4 10 ^3/uL Monocytes # (Auto) 1.5 H 0-1.3 10 ^3/uL Eosinophils # (Auto) 0.1 0-0.8 10 ^3/uL Basophils # (Auto) 0.1 0-0.2 10 ^3/uL Nucleated Red Blood Cells 0.1 % Sodium Level 138 136-145 mmol/L Potassium Level 3.1 L 3.5-5.1 mmol/L Chloride Level 100 98-107 mmol/L Carbon Dioxide Level 21 20-31 mmol/L Anion Gap 17 H 5-15 Blood Urea Nitrogen 66 H 9-23 mg/dL Creatinine 5.77 H 0.550-1.02 mg/dL Glomerular Filtration Rate Calc 8 >90 mL/min BUN/Creatinine Ratio 11.4 10.0-20.0 Serum Glucose 173 H 74-106 mg/dL Calcium Level 8.7 8.7-10.4 mg/dL Total Bilirubin 0.2 0.2-1.0 mg/dL Aspartate Amino Transferase (AST) 25 13-40 U/L Alanine Aminotransferase (ALT) 12 7-40 U/L Alkaline Phosphatase 122 H 46-116 U/L Troponin I High Sensitivity 1764 *H </=34 ng/L Total Protein 8.1 5.7-8.2 g/dL Albumin 4.1 3.2-4.8 g/dL Test 08/17/25 01:50 08/17/25 00:58 08/16/25 22:28 08/16/25 22:06 Range/Units Blood Gas Specimen Type Arterial Blood Gas Sample Site Left radial Blood Gas Patient Temperature 37.0 Arterial Blood Date Drawn [id number] Arterial Blood pH 7.366 7.350-7.450 Arterial Blood Partial Pressure CO2 36.9 32.0-45.0 mmHg Arterial Blood Partial Pressure O2 102.2 83.0-108.0 mmHg Arterial Blood HCO3 20.7 L 21.0-28.0 mmol/L Arterial Blood Oxygen Saturation 97.1 94.0-98.0 % Arterial Blood Base Excess -4.2 L -2.0-3.0 mmol/L Arterial Blood Oxyhemoglobin 95.9 94.0-98.0 % Arterial Blood Carboxyhemoglobin 0.7 0.5-1.5 % Arterial Blood Methemoglobin 0.5 0.0-1.5 % Rock Test Yes Blood Gas Total Hemoglobin 11.20 L 12.0-16.0 g/dL Blood Gas Liter Flow 2.00 Blood Gas Modality Nasal cannula FiO2 % 28.0 Reticulocyte Count (auto) 1.04 0.5-1.5 % Prothrombin Time 11.4 9.3-11.8 sec Prothrombin Time INR 1.08 0.9-1.15 Activated Partial Thromboplast Time 31.2 24.5-34.5 SEC Hemoglobin A1c 9.3 H <5.7 % A1C Phosphorus Level 5.1 2.4-5.1 mg/dL Magnesium Level 2.4 1.6-2.6 mg/dL Triglycerides Level 179 H < 150 mg/dL Cholesterol Level 176 < 200 mg/dL LDL Cholesterol 99 < 100 mg/dL HDL Cholesterol 49 40-59 mg/dL Vitamin B12 Level 383 211-911 pg/mL Vitamin D 25-Hydroxy 15.0 L 30.0-100 ng/mL Thyroid Stimulating Hormone (TSH) 1.40 0.55-4.78 uIU/mL Lactic Acid Level 1.7 0.4-2.0 mmol/L Iron Level 25 L 50-170 ug/dL Total Iron Binding Capacity 236 L 250-425 ug/dL Percent Iron Saturation 10.6 L 15-50 % Ferritin 611.0 H 10-291 ng/mL Lactate Dehydrogenase 243 120-246 U/L B-Type Natriuretic Peptide 217.82 0-100 pg/mL Test 08/16/25 22:00 Range/Units Influenza Type A Antigen Positive Negative Influenza Type B Antigen Positive Negative SARS-CoV-2 Antigen (Rapid) Negative NEGATIVE Assessment Sepsis likely due to influenza. ESRD. Severe anemia. Obesity DM. HTN. History of DVT. Chronic systolic/diastolic heart failure. NSTEMI. Plan/Recommendation I agree with your ongoing assessment and care of plan. Telemetry reviewed. Tamiflu. GI prophylactics. IV antibiotics as ordered. Morphine for pain management. Additional plan as per the hospital course. A total of 45 minutes was spent reviewing the patient record, examining the patient, making a diagnostic and therapeutic plan, discussing this plan with medical personnel, following up on diagnostic studies and following the patient for clinical stability excluding any and all procedures. At least 50% of this time was spent in direct, [id number] contact. Plan discussed with: Patient ARCHIE MARTIN MD Aug 17, 2025 19:42
[2025-08-18] VITALS (18 sets, daily range): BP systolic 102–209; BP diastolic 60–98; PULSE 91–118; RESP 18–21; TEMP 97.8–101.1; O2SAT 68–100
[2025-08-18] MEDS: LABETALOL HCL 20 MG/4 ML VL IV ONE (02:21)
[2025-08-18] MEDS ORDERED: APIX2.5T PO (02:56)
[2025-08-18] MEDS ORDERED: NIFE1TAB30 PO (02:56)
[2025-08-18] MEDS ORDERED: GABA-1308 PO (02:56)
[2025-08-18] MEDS ORDERED: SENN-213 PO (02:56)
[2025-08-18] MEDS ORDERED: CHOL20007 PO (02:56)
[2025-08-18] MEDS ORDERED: INSREG3 IV (02:56)
[2025-08-18] MEDS ORDERED: SUCR5CHW PO (02:56)
[2025-08-18] MEDS ORDERED: ATOR20TA PO (02:56)
[2025-08-18] MEDS ORDERED: INSU100I70 SC (02:56)
[2025-08-18] MEDS ORDERED: FERR325T24 PO (02:56)
[2025-08-18] MEDS ORDERED: METO-159 PO (02:56)
[2025-08-18 06:21] LABS: Hematocrit 34.2 % (36.0-46.0); Hemoglobin 11.2 g/dL (12.2-16.2); Mean Corpuscular Hemoglobin 28.7 pg (28.0-32.0); Mean Corpuscular Volume 87.5 fL (80.0-100.0); Nucleated Red Blood Cells % 0.0 %
[2025-08-18 06:32] LABS: Chloride 100 mmol/L (98-107); Potassium 3.7 mmol/L (3.5-5.1); Sodium 136 mmol/L (136-145)
[2025-08-18 06:33] LABS: Anion Gap 16 (5-15)
[2025-08-18 06:34] LABS: Calcium 8.7 mg/dL (8.7-10.4)
[2025-08-18 06:38] LABS: BUN/Creatinine Ratio 11.5 (10.0-20.0)
[2025-08-18 06:40] LABS: Blood Urea Nitrogen 67 mg/dL (9-23); Carbon Dioxide 20 mmol/L (20-31); Glucose 134 mg/dL (74-106)
[2025-08-18] MEDS ORDERED: SODIUM CHL 0.9% 1000 ML BAG XX ONE (07:00)
[2025-08-18] MEDS: OSELTAMIVIR 30 MG CAP PO SCH (09:42)
--- NOTE | 2025-08-18 10:25 | DVHPN2 ---
Progress Note Date Seen: Aug 18, 2025 Medical Necessity Reason Pt with a Central, PICC or Fol: No Subjective Patient reports: No new complaints Review of Systems: HEENT:Normal, CVS:Normal, RESPIRATORY:Normal, GI:Normal, :Normal, MSK:Normal, NEURO:Normal Objective vital signs Vital Sign Date Time Temp Pulse Resp B/P (MAP) Pulse Ox O2 Delivery O2 Flow Rate FiO2 08/18/25 05:00 98.2 100 18 165/85 (111) 95 98.2 08/18/25 01:28 Room Air* 0 21 Total Intake and Output 08/17/25 08/17/25 08/18/25 15:00 23:00 07:00 Intake Total 250 ml 300 ml Balance 250 ml 300 ml medications Current Medications Medications Dose Ordered Sig/Julio C Route Start Time Stop Time Status Last Admin Dose Admin Levalbuterol HCl 0.625 mg Q6HR NEB 08/16/25 21:15 08/18/25 07:35 0.625 MG Acetaminophen 325 mg Q4HP PRN PO 08/17/25 01:15 08/18/25 09:42 325 MG Ondansetron HCl 4 mg Q4HP PRN IV 08/17/25 01:15 Morphine Sulfate 2 mg Q4HPRN PRN IV 08/17/25 01:15 Ipratropium [place] 0.5 mg Q6HWA NEB 08/17/25 06:00 08/18/25 07:35 0.5 MG Azithromycin 250 ml @ 125 mls/hr DAILY IV 08/17/25 10:00 08/18/25 09:43 125 MLS/HR Pantoprazole Sodium 40 mg BID IV 08/17/25 10:00 08/18/25 09:42 40 MG Diagnostic Test (Pha) 1 strip Q6HR 08/17/25 06:00 08/18/25 05:41 1 STRIP Insulin Human Regular Q6HR SC 08/17/25 06:00 08/18/25 05:42 2 UNITS Dextrose 50 ml UD PRN IV 08/17/25 02:15 Oseltamivir Phosphate 30 mg DAILY PO 08/18/25 10:00 08/23/25 09:59 08/18/25 09:42 30 MG Calcium Acetate 667 mg TIDWMEALS PO 08/17/25 18:00 08/17/25 18:15 667 MG Examination: GENERAL:Normal, HEENT:Normal, NECK:Normal, LUNGS:Normal, CVS:Normal, ABDOMEN:Normal, MSK:Normal, SKIN:Normal, NEURO:Normal, :Normal laboratory and microbiology Laboratory Tests 08/18/25 05:00 Test 08/18/25 05:00 Range/Units Serum Glucose 134 H 74-106 mg/dL Microbiology Date/Time Source Procedure Growth Status 08/16/25 22:28 Blood Blood Culture - Preliminary Resulted Problem List/Assessment/Plan Problem List/Assessment/Plan #1 sepsis likely due to influenza: tamiflu, cultures #2 esrd: on dialysis #3 severe anemia: recheck hemoglobin, ? lab error #4 obesity #5 dm: ssi #6 htn: resume meds #8 h/o dvt: on eliquis #9 chronic systolic/diastolic heart failure #10 nstemi: cardio eval advance care planning- full code- time spent 18 mins Plan discussed with: Patient My Orders My Orders Orders - BETSY MCPHERSON MD Procedure Category Date Status Time * Cardiology Consult CONS 08/17/25 Transmitted 10:49 Oseltamivir 30mg PHA 08/18/25 In Process Capsule (Tamiflu 30mg 10:00 Renal DIET 08/17/25 Transmitted Standard(2gna,3gk,Lopho) Lunch Mrsa Screen ARYA 08/18/25 In Process 05:41 Date of Service: Aug 18, 2025 Billing Provider: BETSY MCPHERSON MD Common Visit Codes: [id number] INP/OBS CARE(HIGH) Secondary Visit Codes: [id number] CARE PLAN 30 MINUTES CC Plasma Assessment Blood Product Administration S: [id number] BETSY MCPHERSON MD Aug 18, 2025 10:25
[2025-08-18] MEDS: ONDANSETRON HCL 4 MG/2 ML VIAL IV PRN (11:42)
[2025-08-18] MEDS: METOPROLOL TARTRATE 25 MG TAB PO ONE (11:43)
[2025-08-18] MEDS: SUCROFERRIC OXYHYDROXIDE 500 MG PO SCH (12:00)
[2025-08-18] MEDS: [UNRECOGNIZED DRUG - OTHER] PO SCH (12:00)
--- NOTE | 2025-08-18 13:21 | DVHSR ---
APPROVED REPORT EXAM: Two-dimensional and M-mode echocardiogram with Doppler and color Doppler. Blood Pressure: 134/72 mmHg INDICATION SOB RISK FACTORS Height: , Weight: DIMENSIONS LVDd (3.8-5.7cm)LA (2D)3.9 (1.9-4.0cm)Aortic Root3.8 (2.0-3.7cm) LVDs (2.5-4.0cm)LA (MM) (1.9-4.0cm)Aortic Cusp Exc1.6 (1.5-2.0cm) EF (%) 63.0 (55-70%)Rt. Atrium4.4 (1.9-4.0cm)Asc. Aorta cm Mitral Valve MitralMitral Stenosis E wave1.74m/sMV Mean GR.6mmHg A wave1.35m/sMV Peak GR.13mmHg E/A ratio1.32D MVAcm2 DECEL [id number] 1/2 [id number] IVRTmsDop MVA2.98cm2 Aortic Valve Aortic ValveAortic Stenosis V11.40m/Tammy Mean GR.5mmHg V21.34m/Tammy Peak GR.7mmHg LVOT Diameter2.2 (1.8-2.4cm)Doppler AVA3.97cm2 Pulmonic Valve V20.81m/s Other Information Technically limited study due to body habitus. Conclusion LVH EF >60% MILD TR MOD MAC NERI
--- NOTE | 2025-08-18 13:54 | DVHPN2 ---
Progress Note - Dictate Date Seen: Aug 18, 2025 Medical Necessity Reason Pt with a Central, PICC or Fol: No Subjective Continues to have cough mild shortness of breath. vital signs Vital Sign Date Time Temp Pulse Resp B/P (MAP) Pulse Ox O2 Delivery O2 Flow Rate FiO2 08/18/25 12:22 112 20 100 08/18/25 12:14 Room Air 0.0 08/18/25 12:14 21 08/18/25 11:44 209/98 08/18/25 10:42 98.0 Total Intake and Output 08/17/25 08/17/25 08/18/25 15:00 23:00 07:00 Intake Total 250 ml 300 ml Balance 250 ml 300 ml medications Current Medications Medications Dose Ordered Sig/Julio C Route Start Time Stop Time Status Last Admin Dose Admin Levalbuterol HCl 0.625 mg Q6HR NEB 08/16/25 21:15 08/18/25 12:14 0.625 MG Acetaminophen 325 mg Q4HP PRN PO 08/17/25 01:15 08/18/25 09:42 325 MG Ondansetron HCl 4 mg Q4HP PRN IV 08/17/25 01:15 08/18/25 11:42 4 MG Morphine Sulfate 2 mg Q4HPRN PRN IV 08/17/25 01:15 Ipratropium [place] 0.5 mg Q6HWA NEB 08/17/25 06:00 08/18/25 12:14 0.5 MG Azithromycin 250 ml @ 125 mls/hr DAILY IV 08/17/25 10:00 08/18/25 09:43 125 MLS/HR Pantoprazole Sodium 40 mg BID IV 08/17/25 10:00 08/18/25 09:42 40 MG Diagnostic Test (Pha) 1 strip Q6HR 08/17/25 06:00 08/18/25 12:23 1 STRIP Insulin Human Regular Q6HR SC 08/17/25 06:00 08/18/25 12:24 4 UNITS Dextrose 50 ml UD PRN IV 08/17/25 02:15 Oseltamivir Phosphate 30 mg DAILY PO 08/18/25 10:00 08/23/25 09:59 08/18/25 09:42 30 MG Calcium Acetate 667 mg TIDWMEALS PO 08/17/25 18:00 08/17/25 18:15 667 MG Clonidine HCl 0.1 mg Q6HP PRN PO 08/18/25 10:30 Nifedipine 60 mg DAILY PO 08/19/25 10:00 Apixaban 2.5 mg BID PO 08/18/25 22:00 Insulin Glargine 10 units HS SC 08/18/25 22:00 Metoprolol Tartrate 25 mg BID PO 08/18/25 22:00 Sennosides 8.6 mg DAILY PRN PO 08/18/25 11:30 Patient Own Medication 1 TID PO 08/18/25 12:00 objective HEENT: No evidence of JVD, no oral ulcers. Pulmonary: Diminished on auscultation bilaterally Cardiovascular S1-S2, no S3 or S4 Abdomen: Bowel sounds positive, soft no rebound tenderness Skin: No rash Neurological: Alert, oriented, no focal weakness Hemodialysis access uncomplicated. laboratory and microbiology Laboratory Tests 08/18/25 05:00 Test 08/18/25 05:00 Range/Units Serum Glucose 134 H 74-106 mg/dL Assessment/Plan Assessment: End-stage renal disease on hemodialysis TTS Hypertension CHF Diabetes type 2 Influenza a and positive History of thromboembolism Acute hypoxic respiratory failure Plan: Dialysis was not done yesterday due to short staffing per [facility] series dialysis. Dialysis will be done today. Continue Tamiflu Continue antibiotics Oxygen supplementation to keep pulses more 90 % He said for goal hemoglobin 10-11 g per dL Continue phosphate binder Thank you very much for allowing us to participate in the care of this patient please contact if you have any questions. Plan discussed with: Patient CC Plasma Assessment Blood Product Administration S: [id number] MARYANN VELARDE MD Aug 18, 2025 13:54
[2025-08-18] MEDS ORDERED: LIDOCAINE 1% HCL (LOCAL ANESTH.) INJ 20ML MDV ID ONE (16:30)
[2025-08-18] MEDS: VELPHORO 500 MG PO SCH (20:30)
--- NOTE | 2025-08-18 21:16 | DVHPN2 ---
Progress Note - Dictate Date Seen: Aug 18, 2025 Medical Necessity Reason Pt with a Central, PICC or Fol: No Subjective Patient was seen and evaluated in follow-up. Patient reports her SOB has resolved. WBC 12.3, HCT 34.2, BUN 67, SALES COMPENSATION ANALYST 5.83, GLUC 208. Telemetry reviewed. vital signs Vital Sign Date Time Temp Pulse Resp B/P (MAP) Pulse Ox O2 Delivery O2 Flow Rate FiO2 08/18/25 12:22 112 20 100 08/18/25 12:14 Room Air 0.0 08/18/25 12:14 21 08/18/25 11:44 209/98 08/18/25 10:42 98.0 Total Intake and Output 08/17/25 08/17/25 08/18/25 15:00 23:00 07:00 Intake Total 250 ml 300 ml Balance 250 ml 300 ml medications Current Medications Medications Dose Ordered Sig/Julio C Route Start Time Stop Time Status Last Admin Dose Admin Levalbuterol HCl 0.625 mg Q6HR NEB 08/16/25 21:15 08/18/25 12:14 0.625 MG Acetaminophen 325 mg Q4HP PRN PO 08/17/25 01:15 08/18/25 09:42 325 MG Ondansetron HCl 4 mg Q4HP PRN IV 08/17/25 01:15 08/18/25 11:42 4 MG Morphine Sulfate 2 mg Q4HPRN PRN IV 08/17/25 01:15 Ipratropium [place] 0.5 mg Q6HWA NEB 08/17/25 06:00 08/18/25 12:14 0.5 MG Azithromycin 250 ml @ 125 mls/hr DAILY IV 08/17/25 10:00 08/18/25 09:43 125 MLS/HR Pantoprazole Sodium 40 mg BID IV 08/17/25 10:00 08/18/25 09:42 40 MG Diagnostic Test (Pha) 1 strip Q6HR 08/17/25 06:00 08/18/25 12:23 1 STRIP Insulin Human Regular Q6HR SC 08/17/25 06:00 08/18/25 12:24 4 UNITS Dextrose 50 ml UD PRN IV 08/17/25 02:15 Oseltamivir Phosphate 30 mg DAILY PO 08/18/25 10:00 08/23/25 09:59 08/18/25 09:42 30 MG Calcium Acetate 667 mg TIDWMEALS PO 08/17/25 18:00 08/17/25 18:15 667 MG Clonidine HCl 0.1 mg Q6HP PRN PO 08/18/25 10:30 Nifedipine 60 mg DAILY PO 08/19/25 10:00 Apixaban 2.5 mg BID PO 08/18/25 22:00 Insulin Glargine 10 units HS SC 08/18/25 22:00 Metoprolol Tartrate 25 mg BID PO 08/18/25 22:00 Sennosides 8.6 mg DAILY PRN PO 08/18/25 11:30 Patient Own Medication 1 TID PO 08/18/25 12:00 objective GENERAL: Alert and oriented x 3. No acute distress. EYES: PERRL, EOMI. Anicteric. HENT: Dry mucous membranes. LUNGS: Clear to auscultation bilaterally. CARDIOVASCULAR: Regular rate and rhythm. ABDOMEN: Soft, nontender and nondistended. EXTREMITIES: No edema. NEUROLOGIC: No focal neurological deficits. SKIN: Warm, dry. laboratory and microbiology Laboratory Tests 08/18/25 05:00 Test 08/18/25 05:00 Range/Units Serum Glucose 134 H 74-106 mg/dL Problem List Sepsis likely due to influenza. ESRD. Severe anemia. Obesity DM. HTN. History of DVT. Chronic systolic/diastolic heart failure. NSTEMI. Assessment/Plan Continued all current supportive medical care. Tamiflu. Clonidine, Nifedipine. Eliquis. Metoprolol. GI prophylactics. IV antibiotics as ordered. Morphine for pain management. Additional plan as per the hospital course. Plan discussed with: Patient CC Plasma Assessment Blood Product Administration S: [id number] ARCHIE MARTIN MD Aug 18, 2025 13:38
[2025-08-18] MEDS: APIXABAN 2.5 MG TAB PO SCH (21:37)
[2025-08-18] MEDS: METOPROLOL TARTRATE 25 MG TAB PO SCH (22:00)
[2025-08-18] MEDS: INSULIN LANTUS (GLARGINE) 1 /0.01ml (100units/ml) SC SCH (23:08)
[2025-08-19] VITALS (14 sets, daily range): BP systolic 105–156; BP diastolic 62–99; PULSE 81–99; RESP 17–20; TEMP 36.6; O2SAT 90–100
[2025-08-19 06:41] LABS: Hematocrit 33.2 % (36.0-46.0); Hemoglobin 11.2 g/dL (12.2-16.2); Mean Corpuscular Hemoglobin 29.3 pg (28.0-32.0); Mean Corpuscular Volume 86.5 fL (80.0-100.0); Nucleated Red Blood Cells % 0.0 %
--- NOTE | 2025-08-19 06:46 | DVH ---
CHEST RADIOGRAPH Indication: pneumonia Technique: Single frontal view of the chest was obtained Comparison: XY CHEST XRAY 1 VIEW on DOS: 08/16/25 FINDINGS: Lines and Tubes: None Lungs: There is pulmonary interstitial prominence. No focal consolidation. Pleura: No effusion. No pneumothorax. Cardiomediastinal contours: Cardiomegaly. Bones: No acute osseous abnormality. IMPRESSION: 1. Cardiomegaly and pulmonary vascular congestion.
[2025-08-19 06:59] LABS: Sodium 139 mmol/L (136-145)
[2025-08-19 07:00] LABS: Anion Gap 15 (5-15); Calcium 8.9 mg/dL (8.7-10.4); Carbon Dioxide 27 mmol/L (20-31)
[2025-08-19] MEDS ORDERED: SODIUM CHL 0.9% 1000 ML BAG XX ONE (07:00)
[2025-08-19 07:05] LABS: BUN/Creatinine Ratio 9.0 (10.0-20.0); Chloride 97 mmol/L (98-107); Potassium 3.3 mmol/L (3.5-5.1)
[2025-08-19 07:09] LABS: Blood Urea Nitrogen 40 mg/dL (9-23); Glucose 130 mg/dL (74-106)
--- NOTE | 2025-08-19 09:19 | ECG ---
[facility] Test Date: 2025-08-17 Test Time: 21:31:22 Pat Name: NELIA MANCIA Department: [facility] ED Patient ID: [id number] Room: 0207T A Gender: F Converter Supervisor: JACOBO : 1970 Requested By: BETSY MCPHERSON Order Number: [id number] Reading MD: Florentni Moran Measurements Intervals [place] Rate: 99 P: 64 PA: 188 QRS: 11 QRSD: 96 T: 73 QT: 382 QTc: 491 Interpretive Statements Sinus rhythm Probable left atrial enlargement LVH with secondary repolarization abnormality Anterior ST elevation, probably due to LVH Borderline prolonged QT interval Electronically Signed On 08-21-2025 18:39:37 PDT by Florentin Moran Please click the below link to view image of tracing.
--- NOTE | 2025-08-19 09:33 | ECG ---
[facility] Test Date: 2025-08-17 Test Time: 15:22:23 Pat Name: NELIA MANCIA Department: [facility] ED Patient ID: [id number] Room: 0207T A Gender: F Employee Welfare Manager: laura : 1970 Requested By: BETSY MCPHERSON Order Number: [id number] Reading MD: Florentin Moran Measurements Intervals [place] Rate: 101 P: 68 [place]: 154 QRS: 98 QRSD: 95 T: -31 QT: 381 QTc: 494 Interpretive Statements Sinus tachycardia Probable left atrial enlargement LVH with secondary repolarization abnormality Anterior infarct, old ST depr, consider ischemia, inferior leads Electronically Signed On 08-21-2025 18:39:11 PDT by Florentin Moran Please click the below link to view image of tracing.
--- NOTE | 2025-08-19 09:33 | ECG ---
[facility] Test Date: 2025-08-17 Test Time: 09:02:42 Pat Name: NELIA MANCIA Department: [facility] ED Patient ID: [id number] Room: 0207T A Gender: F Gis Technician: SHARON : 1970 Requested By: BETSY MCPHERSON Order Number: [id number] Reading MD: Florentin Moran Measurements Intervals [place] Rate: 85 P: 51 [place]: 191 QRS: 10 QRSD: 104 T: 76 QT: 428 QTc: 509 Interpretive Statements Sinus rhythm Probable left ventricular hypertrophy Inferior infarct, old Anterior Q waves, possibly due to LVH Lateral leads are also involved Electronically Signed On 08-21-2025 18:39:05 PDT by Florentin Moran Please click the below link to view image of tracing.
--- NOTE | 2025-08-19 09:39 | ECG ---
[facility] Test Date: 2025-08-17 Test Time: 00:28:00 Pat Name: NELIA MANCIA Department: [facility] ED Patient ID: [id number] Room: 0207T A Gender: F Sql Ssis Developer: BRITTANIE : 1970 Requested By: BETSY MCPHERSON Order Number: [id number] Reading MD: Florentin Moran Measurements Intervals [place] Rate: 82 P: 25 [place]: 166 QRS: -2 QRSD: 105 T: 102 QT: 438 QTc: 512 Interpretive Statements Sinus rhythm Probable left atrial enlargement LVH with secondary repolarization abnormality Inferior infarct, old Anterior infarct, old Prolonged QT interval Electronically Signed On 08-21-2025 18:38:54 PDT by Florentin Moran Please click the below link to view image of tracing.
[2025-08-19] MEDS: FUROSEMIDE 100 MG/10ML VIAL IV SCH (09:50)
[2025-08-19] MEDS: SENNA 8.6 MG TAB PO PRN (11:51)
[2025-08-19] MEDS ORDERED: TAMIF30 PO (13:42)
[2025-08-19] MEDS ORDERED: AZIT-74 PO (13:42)
--- NOTE | 2025-08-19 13:43 | DVHDS2 ---
Discharge Summary Date of Admission Aug 17, 2025 at 01:03 Date of Discharge: Aug 19, 2025 Labs/Diagnostic Data: Laboratory Results Test 08/19/25 11:30 08/19/25 05:02 08/18/25 17:54 08/17/25 09:10 POC Glucose 257 mg/dl (70-106) White Blood Count 8.7 10^3/uL (4.4-10.8) Red Blood Count 3.83 10^6/uL (4.0-5.20) Hemoglobin 11.2 g/dL (12.2-16.2) Hematocrit 33.2 % (36.0-46.0) Mean Corpuscular Volume 86.5 fL (80.0-100.0) Mean Corpuscular Hemoglobin 29.3 pg (28.0-32.0) Mean Corpuscular Hemoglobin Concent 33.8 g/dL (32.0-36.0) Red Cell Distribution Width 17.3 % (11.8-14.3) Platelet Count 235 10^3/uL (140-450) Mean Platelet Volume 8.7 fL (6.9-10.8) Neutrophils (%) (Auto) 63.5 % (37.0-80.0) Lymphocytes (%) (Auto) 23.3 % (10.0-50.0) Monocytes (%) (Auto) 10.7 % (0.0-12.0) Eosinophils (%) (Auto) 1.5 % (0.0-7.0) Basophils (%) (Auto) 1.0 % (0.0-2.0) Neutrophils # (Auto) 5.5 10 ^3/uL (1.6-8.6) Lymphocytes # (Auto) 2.0 10 ^3/uL (0.4-5.4) Monocytes # (Auto) 0.9 10 ^3/uL (0-1.3) Eosinophils # (Auto) 0.1 10 ^3/uL (0-0.8) Basophils # (Auto) 0.1 10 ^3/uL (0-0.2) Nucleated Red Blood Cells 0.0 % Sodium Level 139 mmol/L (136-145) Potassium Level 3.3 mmol/L (3.5-5.1) Chloride Level 97 mmol/L (98-107) Carbon Dioxide Level 27 mmol/L (20-31) Anion Gap 15 (5-15) Blood Urea Nitrogen 40 mg/dL (9-23) Creatinine 4.42 mg/dL (0.550-1.02) Glomerular Filtration Rate Calc 11 mL/min (>90) BUN/Creatinine Ratio 9.0 (10.0-20.0) Serum Glucose 130 mg/dL (74-106) Calcium Level 8.9 mg/dL (8.7-10.4) Urine Color Light-yellow (Yellow) Urine Clarity Turbid (Clear) Urine pH 6.0 (5.0-9.0) Urine Specific [place] 1.014 (1.001-1.035) Urine Protein 2+ (Negative) Urine Ketones Negative (Negative) Urine Blood 1+ /uL (Negative) Urine Nitrite Negative (Negative) Urine Bilirubin Negative (Negative) Urine Urobilinogen Normal mg/dL (Negative) Urine Leukocyte Esterase Negative /uL (Negative) Urine RBC 6 /hpf (0 - 4) Urine Microscopic WBC 5 /HPF (0-5) Urine Squamous Epithelial Cells Few /hpf (<5) Urine Bacteria Few /hpf (None Seen) Urine Glucose 4+ mg/dL (Normal) Urine Test Negative (Negative) Urine Opiates Screen Neg (NEGATIVE) Urine Fentanyl Screen Neg (NEGATIVE) Urine Barbiturates Screen Neg (NEGATIVE) Urine Phencyclidine Screen Neg (NEGATIVE) Urine Amphetamines Screen Neg (NEGATIVE) Urine Benzodiazepines Screen Neg (NEGATIVE) Urine Cocaine Screen Neg (NEGATIVE) Urine Cannabinoids Screen Neg (NEGATIVE) Test 08/17/25 07:42 08/17/25 01:50 08/17/25 00:58 08/16/25 22:28 Total Bilirubin 0.2 mg/dL (0.2-1.0) Aspartate Amino Transferase (AST) 25 U/L (13-40) Alanine Aminotransferase (ALT) 12 U/L (7-40) Alkaline Phosphatase 122 U/L (46-116) Troponin I High Sensitivity 1764 ng/L (</=34) Total Protein 8.1 g/dL (5.7-8.2) Albumin 4.1 g/dL (3.2-4.8) Blood Gas Specimen Type Arterial Blood Gas Sample Site Left radial Blood Gas Patient Temperature 37.0 Arterial Blood Date Drawn Arterial Blood pH 7.366 (7.350-7.450) Arterial Blood Partial Pressure CO2 36.9 mmHg (32.0-45.0) Arterial Blood Partial Pressure O2 102.2 mmHg (83.0-108.0) Arterial Blood HCO3 20.7 mmol/L (21.0-28.0) Arterial Blood Oxygen Saturation 97.1 % (94.0-98.0) Arterial Blood Base Excess -4.2 mmol/L (-2.0-3.0) Arterial Blood Oxyhemoglobin 95.9 % (94.0-98.0) Arterial Blood Carboxyhemoglobin 0.7 % (0.5-1.5) Arterial Blood Methemoglobin 0.5 % (0.0-1.5) Rock Test Yes Blood Gas Total Hemoglobin 11.20 g/dL (12.0-16.0) Blood Gas Liter Flow 2.00 Blood Gas Modality Nasal cannula FiO2 % 28.0 Reticulocyte Count (auto) 1.04 % (0.5-1.5) Haptoglobin 315 mg/dL (33-346) Prothrombin Time 11.4 sec (9.3-11.8) Prothrombin Time INR 1.08 (0.9-1.15) Activated Partial Thromboplast Time 31.2 SEC (24.5-34.5) Hemoglobin A1c 9.3 % A1C (<5.7) Phosphorus Level 5.1 mg/dL (2.4-5.1) Magnesium Level 2.4 mg/dL (1.6-2.6) Triglycerides Level 179 mg/dL (< 150) Cholesterol Level 176 mg/dL (< 200) LDL Cholesterol 99 mg/dL (< 100) HDL Cholesterol 49 mg/dL (40-59) Vitamin B12 Level 383 pg/mL (211-911) Vitamin D 25-Hydroxy 15.0 ng/mL (30.0-100) Thyroid Stimulating Hormone (TSH) 1.40 uIU/mL (0.55-4.78) Lactic Acid Level 1.7 mmol/L (0.4-2.0) Test 08/16/25 22:06 08/16/25 22:00 Iron Level 25 ug/dL (50-170) Total Iron Binding Capacity 236 ug/dL (250-425) Percent Iron Saturation 10.6 % (15-50) Ferritin 611.0 ng/mL (10-291) Lactate Dehydrogenase 243 U/L (120-246) B-Type Natriuretic Peptide 217.82 pg/mL (0-100) Influenza Type A Antigen Positive (Negative) Influenza Type B Antigen Positive (Negative) SARS-CoV-2 Antigen (Rapid) Negative (NEGATIVE) Other Laboratory Tests 08/19/25 05:02 Brief Hx & Hospital Course: SEE DICTATED NOTE Condition at Discharge: Fair Final Diagnosis/Problems List INFLUENZA Discharge Disposition: Home Discharge Instruct/Medications Diet: Renal Activity: No Restrictions, As Tolerated Follow Up/Referral: FU WITH PCP/DIALYSIS Medications: RESUME HOME MEDS SCRIPT TO PHARMACY Scheduled Apixaban Base (Eliquis), 2.5 MG PO BID, (Reported) Atorvastatin Calcium (Lipitor), 1 TAB PO DAILY, (Reported) Azithromycin (Zithromax), 250 MG PO DAILY Cholecalciferol (Vitamin D3), 1 TAB PO DAILY, (Reported) Ferrous Sulfate (Ferrous Sulfate), 325 MG PO BIDWM, (Reported) Gabapentin (Gabapentin), 100 MG PO BID, (Reported) Scheduled PRN Oseltamivir Phosphate (Tamiflu), 1 CAP PO BID PRN Miscellaneous Medications Insulin Glargine-Yfgn (Insulin Glargine), 100 UNIT SC, (Reported) Insulin Regular (Human) (Humulin R), 100 UNIT IV, (Reported) Metoprolol Tartrate (Metoprolol Tartrate), 100 MG PO, (Reported) Nifedipine (Nifedipine Er), 60 MG PO, (Reported) Polynuclear Iron(III)-Oxyhydro (Velphoro), 500 MG PO, (Reported) Sennosides-Docusate Sodium (Senna Plus 8.6-50 mg), 1 TAB PO, (Reported) Discharge Statement: "Patient was advised to return to the ER or call 911 if any headaches, dizziness, shortness of breath, chest pain, abdominal pain, bleeding, fevers, or worsening of medical condition. Patient was counseled about treatment plan, medications, possible side effects, patientverbalized understanding. All questions were answered to the best of my ability. This discharge took greater then 30 minutes in planning, reviewing documentation, counseling the patient, and discussing with other team members." ASSESSMENT ASSESSMENT Assessment INFLUENZA Date of Service: Aug 19, 2025 Billing Provider: BETSY MCPHERSON MD Common Visit Codes: [id number]/[id number] DISCH DAY >30min BETSY MCPHERSON MD Aug 19, 2025 13:43
--- NOTE | 2025-08-19 14:15 | MEDREC ---
[facility] Intervention Section I [facility] Intervention: Review courses of therapy (QTc = 512, consider changing azithromycin to doxycycline) WEI CORONA PHARMACIST Aug 19, 2025 14:15
--- NOTE | 2025-08-19 15:02 | DVHPN2 ---
Progress Note - Dictate Date Seen: Aug 19, 2025 Medical Necessity Reason Pt with a Central, PICC or Fol: No Subjective Patient feels much better and she wants to go home vital signs Vital Sign Date Time Temp Pulse Resp B/P (MAP) Pulse Ox O2 Delivery O2 Flow Rate FiO2 08/19/25 12:48 85 18 98 08/19/25 12:40 Room Air* 0 21 08/19/25 10:52 134/73 08/19/25 05:00 98.6 98.6 Total Intake and Output 08/18/25 08/18/25 08/19/25 15:00 23:00 07:00 Intake Total 600 ml 233 ml Balance 600 ml 233 ml medications Current Medications Medications Dose Ordered Sig/Julio C Route Start Time Stop Time Status Last Admin Dose Admin Levalbuterol HCl 0.625 mg Q6HR NEB 08/16/25 21:15 08/19/25 12:40 0.625 MG Acetaminophen 325 mg Q4HP PRN PO 08/17/25 01:15 08/18/25 21:37 325 MG Ondansetron HCl 4 mg Q4HP PRN IV 08/17/25 01:15 08/18/25 11:42 4 MG Morphine Sulfate 2 mg Q4HPRN PRN IV 08/17/25 01:15 Ipratropium [place] 0.5 mg Q6HWA NEB 08/17/25 06:00 08/19/25 12:40 0.5 MG Azithromycin 250 ml @ 125 mls/hr DAILY IV 08/17/25 10:00 08/19/25 09:50 125 MLS/HR Pantoprazole Sodium 40 mg BID IV 08/17/25 10:00 08/19/25 09:50 40 MG Diagnostic Test (Pha) 1 strip Q6HR 08/17/25 06:00 08/19/25 11:31 1 STRIP Insulin Human Regular Q6HR SC 08/17/25 06:00 08/19/25 11:43 6 UNITS Dextrose 50 ml UD PRN IV 08/17/25 02:15 Oseltamivir Phosphate 30 mg DAILY PO 08/18/25 10:00 08/23/25 09:59 08/19/25 09:51 30 MG Calcium Acetate 667 mg TIDWMEALS PO 08/17/25 18:00 08/17/25 18:15 667 MG Clonidine HCl 0.1 mg Q6HP PRN PO 08/18/25 10:30 Nifedipine 60 mg DAILY PO 08/19/25 10:00 08/19/25 09:51 60 MG Apixaban 2.5 mg BID PO 08/18/25 22:00 08/19/25 09:52 2.5 MG Insulin Glargine 10 units HS SC 08/18/25 22:00 08/18/25 23:08 10 UNITS Metoprolol Tartrate 25 mg BID PO 08/18/25 22:00 08/19/25 09:52 25 MG Sennosides 8.6 mg DAILY PRN PO 08/18/25 11:30 08/19/25 11:51 8.6 MG Furosemide 80 mg DAILY IV 08/19/25 10:00 08/19/25 09:50 80 MG Patient Own Medication 1 TIDWM PO 08/18/25 18:00 08/19/25 11:52 1 objective HEENT: No evidence of JVD, no oral ulcers. Pulmonary: Diminished on auscultation bilaterally Cardiovascular S1-S2, no S3 or S4 Abdomen: Bowel sounds positive, soft no rebound tenderness Skin: No rash Neurological: Alert, oriented, no focal weakness Hemodialysis access uncomplicated. laboratory and microbiology Laboratory Tests 08/19/25 05:02 Test 08/19/25 05:02 Range/Units Serum Glucose 130 H 74-106 mg/dL Assessment/Plan Assessment: End-stage renal disease on hemodialysis TTS Hypertension CHF Diabetes type 2 Influenza a and positive History of thromboembolism Acute hypoxic respiratory failure Plan: Dialysis today, okay to discharge home after this Continue Tamiflu Continue antibiotics Oxygen supplementation to keep pulses more 90 % [place] for goal hemoglobin 10 to 11 grams/deciliter Continue phosphate binder Thank you very much for allowing us to participate in the care of this patient please contact if you have any questions. Plan discussed with: Patient CC Plasma Assessment Blood Product Administration S: 02:08 MARYANN VELARDE MD Aug 19, 2025 15:02
[2025-08-19] MEDS ORDERED: LIDOCAINE 1% HCL (LOCAL ANESTH.) INJ 20ML MDV ID PRN (15:15)
--- NOTE | 2025-08-19 15:18 | DVHDS ---
DATE OF DISCHARGE: 08/19/2025 HISTORY OF PRESENT ILLNESS: The patient is a 54-year-old lady who is admitted with history of dyspnea, chest pain, generalized weakness, and fatigue and has history of end-stage renal disease, on hemodialysis, pulmonary embolism, diabetes, hypertension, and hyperlipidemia. HOSPITAL COURSE: The patient was positive for influenza A and B. The patient was continued on hemodialysis while in the hospital. Chest x-ray showed evidence of possible pulmonary venous congestion. Doppler of the lower extremity was negative for DVT. The patient's white count was elevated at 22,000 that improved to 8000 at the time of discharge. Hemoglobin was 6.8 at admission. Repeat, however, was normal. The patient did receive 1 unit of blood transfusion. It appears that the hemoglobin initial level might have been an error. The patient will now be discharged home to resume her home medications as well as to be on Tamiflu 30 mg p.o. b.i.d. for 3 days and Zithromax 250 mg daily for 3 days. She will follow up with her primary on dialysis clinic. FINAL DIAGNOSES: * Sepsis due to influenza A and B. * End-stage renal disease, on hemodialysis. * Questionable anemia. * Obesity. * Diabetes mellitus. * Hypertension. * History of DVT. * Acute on chronic systolic/diastolic heart failure. * Non-STEMI, likely type 2. The patient was seen in Cardiology consult by Dr. Conner. Echocardiogram done, showed an ejection fraction of 60%. Time spent in discharge planning and review of plan with the patient and nursing was 39 minutes. MD NGOC Altamirano/ARUN TID: [id number] RECEIPT: [id number]
[2025-08-19] MEDS ORDERED: LIDOCAINE 1% INJ PF 5ML AMP ID PRN (16:00)
[2025-08-19] MEDS ORDERED: LIDOCAINE 1% INJ PF 5ML AMP ID ONE (16:00)
--- NOTE | 2025-08-19 23:03 | DVHPN2 ---
Progress Note - Dictate Date Seen: Aug 19, 2025 Medical Necessity Reason Pt with a Central, PICC or Fol: No Subjective Patient was seen and evaluated in follow up. K 3.3, CL 97, BUN 40, CUSTODIAL MANAGER 4.42, GLUC 257. Chest x-ray shows cardiomegaly and pulmonary vascular congestion. Telemetry reviewed. vital signs Vital Sign Date Time Temp Pulse Resp B/P (MAP) Pulse Ox O2 Delivery O2 Flow Rate FiO2 08/19/25 09:52 89 144/83 08/19/25 08:59 20 93 08/19/25 08:59 Room Air* 0 21 08/19/25 05:00 98.6 98.6 Total Intake and Output 08/18/25 08/18/25 08/19/25 15:00 23:00 07:00 Intake Total 600 ml 233 ml Balance 600 ml 233 ml medications Current Medications Medications Dose Ordered Sig/Julio C Route Start Time Stop Time Status Last Admin Dose Admin Levalbuterol HCl 0.625 mg Q6HR NEB 08/16/25 21:15 08/19/25 08:59 0.625 MG Acetaminophen 325 mg Q4HP PRN PO 08/17/25 01:15 08/18/25 21:37 325 MG Ondansetron HCl 4 mg Q4HP PRN IV 08/17/25 01:15 08/18/25 11:42 4 MG Morphine Sulfate 2 mg Q4HPRN PRN IV 08/17/25 01:15 Ipratropium [place] 0.5 mg Q6HWA NEB 08/17/25 06:00 08/19/25 08:59 0.5 MG Azithromycin 250 ml @ 125 mls/hr DAILY IV 08/17/25 10:00 08/19/25 09:50 125 MLS/HR Pantoprazole Sodium 40 mg BID IV 08/17/25 10:00 08/19/25 09:50 40 MG Diagnostic Test (Pha) 1 strip Q6HR 08/17/25 06:00 08/19/25 11:31 1 STRIP Insulin Human Regular Q6HR SC 08/17/25 06:00 08/19/25 11:43 6 UNITS Dextrose 50 ml UD PRN IV 08/17/25 02:15 Oseltamivir Phosphate 30 mg DAILY PO 08/18/25 10:00 08/23/25 09:59 08/19/25 09:51 30 MG Calcium Acetate 667 mg TIDWMEALS PO 08/17/25 18:00 08/17/25 18:15 667 MG Clonidine HCl 0.1 mg Q6HP PRN PO 08/18/25 10:30 Nifedipine 60 mg DAILY PO 08/19/25 10:00 08/19/25 09:51 60 MG Apixaban 2.5 mg BID PO 08/18/25 22:00 08/19/25 09:52 2.5 MG Insulin Glargine 10 units HS SC 08/18/25 22:00 08/18/25 23:08 10 UNITS Metoprolol Tartrate 25 mg BID PO 08/18/25 22:00 08/19/25 09:52 25 MG Sennosides 8.6 mg DAILY PRN PO 08/18/25 11:30 08/19/25 11:51 8.6 MG Furosemide 80 mg DAILY IV 08/19/25 10:00 08/19/25 09:50 80 MG Patient Own Medication 1 TIDWM PO 08/18/25 18:00 08/19/25 11:52 1 objective GENERAL: Alert and oriented x 3. No acute distress. EYES: PERRL, EOMI. Anicteric. HENT: Dry mucous membranes. LUNGS: Clear to auscultation bilaterally. CARDIOVASCULAR: Regular rate and rhythm. ABDOMEN: Soft, nontender and nondistended. EXTREMITIES: No edema. NEUROLOGIC: No focal neurological deficits. SKIN: Warm, dry. laboratory and microbiology Laboratory Tests 08/19/25 05:02 Test 08/19/25 05:02 Range/Units Serum Glucose 130 H 74-106 mg/dL Problem List Sepsis likely due to influenza. ESRD. Severe anemia. Obesity DM. HTN. History of DVT. Chronic systolic/diastolic heart failure. NSTEMI. Assessment/Plan Continued all current supportive medical care. Tamiflu. Clonidine, Nifedipine. Eliquis. Metoprolol. GI prophylactics. IV antibiotics as ordered. Morphine for pain management. Additional plan as per the hospital course. Plan discussed with: Patient CC Plasma Assessment Blood Product Administration S: 02:08 ARCHIE MARTIN MD Aug 19, 2025 12:07
== END 2025-08-19 20:20 | disposition home or self-care (01) | DRG 871 ==
LOC: ER 20:49 → EDBD 20:49 → OVERFLOW 08-17 01:03 → TELE-CENTR 08-17 21:49
PROVIDERS: ADMIT Internal Medicine; ATTEND Internal Medicine
PROC: 30233N1 Transfusion of Nonautologous Red Blood Cells into Peripheral Vein, Percutaneous Approach (ICD-10-PCS; principal; 2025-08-17)
PROC: 5A1D70Z Performance of Urinary Filtration, Intermittent, Less than 6 Hours Per Day (ICD-10-PCS; 2025-08-18)
DX: A41.89 Other specified sepsis (principal); I21.A1 Myocardial infarction type 2; J96.01 Acute respiratory failure with hypoxia; N18.6 End stage renal disease; I50.43 Acute on chronic combined systolic (congestive) and diastolic (congestive) heart failure; J10.01 Influenza due to other identified influenza virus with the same other identified influenza virus pneumonia; E87.20 Acidosis, unspecified; I13.2 Hypertensive heart and chronic kidney disease with heart failure and with stage 5 chronic kidney disease, or end stage renal disease; D62 Acute posthemorrhagic anemia; E66.9 Obesity, unspecified; E78.5 Hyperlipidemia, unspecified; D64.9 Anemia, unspecified; E11.22 Type 2 diabetes mellitus with diabetic chronic kidney disease; Z20.822 Contact with and (suspected) exposure to COVID-19; Z79.4 Long term (current) use of insulin; Z86.711 Personal history of pulmonary embolism; Z86.718 Personal history of other venous thrombosis and embolism; Z99.2 Dependence on renal dialysis; Z79.899 Other long term (current) drug therapy; Z68.33 Body mass index [BMI] 33.0-33.9, adult; Z88.1 Allergy status to other antibiotic agents; Z88.8 Allergy status to other drugs, medicaments and biological substances
CPT/HCPCS: 36415; 36600; 71045; 80048; 80053; 80061; 80307; 81001; 81025; 82306; 82607; 82728; 82805; 82962; 83010; 83036; 83540; 83550; 83605; 83615; 83735; 83880; 84100; 84443; 84484; 85014; 85018; 85025; 85045; 85610; 85730; 86850; 86900; 86901; 86920; 87040; 87081; 87340; 87426; 87804; 90935; 93005; 93306; 93970; 94640; 96365; 96368; G0378; G9035; J1815; J2405; J2470; J3480